=== PATIENT | male | born 1960 | race Caucasian/White ===

== ENCOUNTER 2018-02-13 07:40 | Outpatient (CLI) | payer OTHER ==
[~2018-02-13 07:40] MED LIST: AZIT250T PO; HYDR12.5 PO; OLME1TAB22 PO; OLME40TA13 PO; VALA10002 PO
[2018-02-13 09:12] LABS: BASOPHILS % (AUTO) 0.6 % (0-1); EOSINOPHILS # (AUTO) 0.2 X10'3 (0-0.9); EOSINOPHILS % (AUTO) 2.6 % (0-6); HEMATOCRIT 46.1 % (42.0-52.0); HEMOGLOBIN 15.8 g/dl (14.0-17.9); LYMPHOCYTES # (AUTO) 2.7 X10'3 (1.1-4.8); MEAN CORPUSCULAR HEMOGLOBIN 29.8 PG (27.0-31.0); MEAN CORPUSCULAR HGB CONC 34.3 % (33.0-36.5); MEAN CORPUSCULAR VOLUME 86.9 FL (78-98); MEAN PLATELET VOLUME 8.2 FL (7.4-10.4); MONOCYTES # (AUTO) 0.6 X10'3 (0-0.9); MONOCYTES % (AUTO) 8.1 % (2-12); NEUTROPHILS # (AUTO) 3.3 X10'3 (1.8-7.7); NEUTROPHILS % (AUTO) 48.7 % (42-75); PLATELET COUNT 169 X10'3 (140-440); RED BLOOD COUNT 5.31 X10'6 (4.70-6.10); RED CELL DISTRIBUTION WIDTH 13.4 % (11.5-14.5); WHITE BLOOD COUNT 6.8 X10'3 (4.5-11.0)
[2018-02-13 09:16] LABS: CLARITY,URINE CLEAR (Clear); COLOR,URINE YELLOW (Yellow); GLUCOSE, URINE NEGATIVE (Neg); KETONES,URINE NEGATIVE (Neg); LEUKOCYTE ESTERASE ,URINE NEGATIVE (Neg); NITRITES, URINE NEGATIVE (Neg); OCCULT BLOOD,URINE NEGATIVE (Neg); PROTEIN,URINE >=300 mg/dl (Neg); UROBILINOGEN,URINE 0.2 E.U/dL (0.2-1.0)
[2018-02-13 09:24] LABS: UA COLLECTION TYPE CLN CATCH MIDSTREAM
[2018-02-13 09:27] LABS: BACTERIA,URINE NONE SEEN /HPF (Neg); MUCUS STRANDS NONE SEEN /LPF (Neg); RBC,URINE 0-2 /HPF (0-2); SQUAMOUS EPITHELIAL CELL,UR FEW /LPF (FEW); WBC,URINE NONE SEEN /HPF (0-4)
[2018-02-13 09:44] LABS: TOTAL PROTEIN,URINE RANDOM 217.9 MG/DL; UA PROTEIN/CREATININE RATIO 1.86 mg/mg Cr (0-0.16)
[2018-02-13 09:48] LABS: % IRON SATURATION 39 % (11-46); IRON 98 UG/DL (53-167); TOTAL IRON BINDING CAPACITY 252 UG/DL (259-388)
[2018-02-13 09:53] LABS: ALBUMIN 3.7 G/DL (3.4-5.0); ANION GAP 8 (8-16); BLOOD UREA NITROGEN 30 MG/DL (7-18); BUN/CREATININE RATIO 14.6 (5.4-32.0); CHLORIDE 104 MMOL/L (99-107); CREATININE 2.06 MG/DL (0.60-1.10); FERRITIN 118 NG/ML (26-388); GLUCOSE 96 MG/DL (70-104); MAGNESIUM 1.7 MG/DL (1.5-2.4); PHOSPHORUS 3.3 MG/DL (2.3-4.5); POTASSIUM 3.9 MMOL/L (3.5-5.1); SODIUM 141 MMOL/L (135-145); TOTAL CARBON DIOXIDE 29.1 MMOL/L (24-32); eGFR 34 ML/MIN
[2018-02-14 08:57] LABS: VITAMIN D, 25-HYDROXY 50.7 ng/mL (30.0-100.0)
[2018-02-14 16:11] LABS: PARATHYROID HORMONE 36.5 PG/ML (11-67)
== END 2018-02-13 23:59 | disposition home or self-care (01) ==
LOC: LAB 07:40
PROVIDERS: ATTEND Internal Medicine Critical Care Medicine
DX: I12.9 Hypertensive chronic kidney disease with stage 1 through stage 4 chronic kidney disease, or unspecified chronic kidney disease (principal); N18.3 Chronic kidney disease, stage 3 (moderate); D63.1 Anemia in chronic kidney disease; R80.9 Proteinuria, unspecified; E55.9 Vitamin D deficiency, unspecified; R94.4 Abnormal results of kidney function studies; F10.10 Alcohol abuse, uncomplicated; J45.909 Unspecified asthma, uncomplicated; Z87.891 Personal history of nicotine dependence; Z72.89 Other problems related to lifestyle
CPT/HCPCS: 36415; 80069; 80197; 81001; 82306; 82570; 82728; 83540; 83550; 83735; 83970; 84156; 85025

== ENCOUNTER 2018-03-13 08:00 | Emergency (ER) | payer OTHER ==
[~2018-03-13] VITALS: Ht 177.8 cm; Wt 86.4 kg
[2018-03-13] MEDS ORDERED: normal saline 1000ml 1,000 ML IV ONE (08:15)
[2018-03-13] MEDS ORDERED: HYDR-4069 PO (08:27)
[2018-03-13] MEDS ORDERED: SIMV20TA5 PO (08:27)
[2018-03-13] MEDS ORDERED: OMEG1CAP21 PO (08:27)
[2018-03-13] MEDS ORDERED: TACR1CAP PO (08:27)
[2018-03-13 08:42] LABS: BASOPHILS % (AUTO) 0.6 % (0-1); EOSINOPHILS # (AUTO) 0.3 X10'3 (0-0.9); EOSINOPHILS % (AUTO) 3.9 % (0-6); HEMATOCRIT 44.1 % (42.0-52.0); HEMOGLOBIN 15.2 g/dl (14.0-17.9); LYMPHOCYTES # (AUTO) 2.7 X10'3 (1.1-4.8); LYMPHOCYTES % (AUTO) 41.2 % (21-51); MEAN CORPUSCULAR HEMOGLOBIN 29.6 PG (27.0-31.0); MEAN CORPUSCULAR HGB CONC 34.5 % (33.0-36.5); MEAN CORPUSCULAR VOLUME 85.9 FL (78-98); MEAN PLATELET VOLUME 8.1 FL (7.4-10.4); MONOCYTES # (AUTO) 0.5 X10'3 (0-0.9); MONOCYTES % (AUTO) 7.3 % (2-12); NEUTROPHILS # (AUTO) 3.1 X10'3 (1.8-7.7); PLATELET COUNT 166 X10'3 (140-440); RED BLOOD COUNT 5.14 X10'6 (4.70-6.10); RED CELL DISTRIBUTION WIDTH 13.4 % (11.5-14.5); WHITE BLOOD COUNT 6.5 X10'3 (4.5-11.0)
[2018-03-13 08:48] LABS: ALANINE AMINOTRANSFERASE 35 U/L (12-78); ALBUMIN 3.7 G/DL (3.4-5.0); ALBUMIN/GLOBULIN RATIO 1.3 (1.1-1.5); ALKALINE PHOSPHATASE 64 IU/L (46-116); ANION GAP 8 (8-16); ASPARTATE AMINO TRANSFERASE 20 U/L (10-37); BLOOD UREA NITROGEN 25 MG/DL (7-18); CALCIUM 8.6 MG/DL (8.5-10.1); CHLORIDE 105 MMOL/L (99-107); CREATININE 1.93 MG/DL (0.60-1.10); GLUCOSE 99 MG/DL (70-104); LIPASE 1222 U/L (73-393); POTASSIUM 3.8 MMOL/L (3.5-5.1); SODIUM 142 MMOL/L (135-145); TOTAL CARBON DIOXIDE 28.9 MMOL/L (24-32); TOTAL PROTEIN 6.6 G/DL (6.4-8.2); eGFR 36 ML/MIN
[2018-03-13 09:28] LABS: CLARITY,URINE CLEAR (Clear); COLOR,URINE YELLOW (Yellow); GLUCOSE, URINE NEGATIVE (Neg); KETONES,URINE NEGATIVE (Neg); LEUKOCYTE ESTERASE ,URINE NEGATIVE (Neg); NITRITES, URINE NEGATIVE (Neg); OCCULT BLOOD,URINE NEGATIVE (Neg); PROTEIN,URINE 100 mg/dl (Neg); UROBILINOGEN,URINE 0.2 E.U/dL (0.2-1.0)
[2018-03-13 09:30] LABS: UA COLLECTION TYPE VOIDED
[2018-03-13 09:34] LABS: BACTERIA,URINE FEW /HPF (Neg); MUCUS STRANDS FEW /LPF (Neg); RBC,URINE 0-2 /HPF (0-2); SQUAMOUS EPITHELIAL CELL,UR FEW /LPF (FEW); WBC,URINE 0-4 /HPF (0-4)
[2018-03-13 13:06] LABS: C DIFF ANTIGEN NEGATIVE (NEGATIVE); C DIFF SPECIMEN=DIARRHEA? ACCEPTABLE; C DIFFICILE TOXINS A&B NEGATIVE (Neg)
[2018-03-13 13:19] VITALS: BP 153/102
== END 2018-03-13 13:22 | disposition home or self-care (01) ==
LOC: ER 08:01
DX: R74.8 Abnormal levels of other serum enzymes (principal); R19.7 Diarrhea, unspecified; K80.20 Calculus of gallbladder without cholecystitis without obstruction; I12.9 Hypertensive chronic kidney disease with stage 1 through stage 4 chronic kidney disease, or unspecified chronic kidney disease; N18.9 Chronic kidney disease, unspecified; Z98.890 Other specified postprocedural states; Z88.5 Allergy status to narcotic agent; Z88.8 Allergy status to other drugs, medicaments and biological substances; Z91.018 Allergy to other foods; Z79.899 Other long term (current) drug therapy
CPT/HCPCS: 36415; 74176; 76700; 80053; 81001; 83690; 85025; 87045; 87046; 87324; 87449; 96360; 99285; J7030

== ENCOUNTER 2018-03-21 10:40 | Outpatient (CLI) | payer OTHER ==
[~2018-03-21 10:40] MED LIST changes: -AZIT250T PO; +HYDR-4069 PO; -HYDR12.5 PO; -OLME40TA13 PO; +OMEG1CAP21 PO; +SIMV20TA5 PO; +TACR1CAP PO; -VALA10002 PO
[2018-03-21 11:46] LABS: CLARITY,URINE CLEAR (Clear); COLOR,URINE YELLOW (Yellow); GLUCOSE, URINE NEGATIVE (Neg); KETONES,URINE NEGATIVE (Neg); LEUKOCYTE ESTERASE ,URINE NEGATIVE (Neg); NITRITES, URINE NEGATIVE (Neg); OCCULT BLOOD,URINE NEGATIVE (Neg); PH,URINE 5.5 (4.8-8.0); PROTEIN,URINE 100 mg/dl (Neg); UROBILINOGEN,URINE 0.2 E.U/dL (0.2-1.0)
[2018-03-21 12:06] LABS: UA COLLECTION TYPE CLN CATCH MIDSTREAM
[2018-03-21 12:07] LABS: RBC,URINE NONE SEEN /HPF (0-2); WBC,URINE 0-4 /HPF (0-4)
[2018-03-21 12:08] LABS: BACTERIA,URINE FEW /HPF (Neg); SQUAMOUS EPITHELIAL CELL,UR FEW /LPF (FEW)
== END 2018-03-21 23:59 | disposition home or self-care (01) ==
LOC: LAB 10:40
PROVIDERS: ATTEND Family Medicine
DX: N39.0 Urinary tract infection, site not specified (principal); R82.90 Unspecified abnormal findings in urine; R68.89 Other general symptoms and signs; I10 Essential (primary) hypertension; J45.909 Unspecified asthma, uncomplicated; Z87.891 Personal history of nicotine dependence
CPT/HCPCS: 81001

== ENCOUNTER 2018-03-21 10:49 | Outpatient (CLI) | payer OTHER ==
[2018-03-21 11:59] LABS: AMYLASE 144 U/L (25-115); LIPASE 1197 U/L (73-393)
== END 2018-03-21 23:59 | disposition home or self-care (01) ==
LOC: LAB 10:49
PROVIDERS: ATTEND Internal Medicine Critical Care Medicine
DX: N04.9 Nephrotic syndrome with unspecified morphologic changes (principal); R74.8 Abnormal levels of other serum enzymes; R76.9 Abnormal immunological finding in serum, unspecified; I10 Essential (primary) hypertension; J45.909 Unspecified asthma, uncomplicated; Z72.89 Other problems related to lifestyle; Z87.891 Personal history of nicotine dependence
CPT/HCPCS: 36415; 82150; 83690

== ENCOUNTER 2018-04-11 07:50 | Outpatient (CLI) | payer OTHER ==
[~2018-04-11 07:50] MED LIST changes: -OLME1TAB22 PO; -OMEG1CAP21 PO; -SIMV20TA5 PO; -TACR1CAP PO
[2018-04-11 09:19] LABS: BASOPHILS % (AUTO) 0.3 % (0-1); EOSINOPHILS # (AUTO) 0.4 X10'3 (0-0.9); HEMATOCRIT 47.5 % (42.0-52.0); LYMPHOCYTES # (AUTO) 2.2 X10'3 (1.1-4.8); LYMPHOCYTES % (AUTO) 30.3 % (21-51); MEAN CORPUSCULAR HEMOGLOBIN 29.5 PG (27.0-31.0); MEAN CORPUSCULAR HGB CONC 33.7 % (33.0-36.5); MEAN CORPUSCULAR VOLUME 87.7 FL (78-98); MEAN PLATELET VOLUME 8.4 FL (7.4-10.4); MONOCYTES # (AUTO) 0.6 X10'3 (0-0.9); MONOCYTES % (AUTO) 8.7 % (2-12); NEUTROPHILS % (AUTO) 54.7 % (42-75); PLATELET COUNT 179 X10'3 (140-440); RED BLOOD COUNT 5.42 X10'6 (4.70-6.10); RED CELL DISTRIBUTION WIDTH 13.3 % (11.5-14.5); WHITE BLOOD COUNT 7.3 X10'3 (4.5-11.0)
[2018-04-11 10:00] LABS: ALANINE AMINOTRANSFERASE 28 U/L (12-78); ALBUMIN 3.1 G/DL (3.4-5.0); ALKALINE PHOSPHATASE 59 IU/L (46-116); AMYLASE 76 U/L (25-115); ANION GAP 10 (8-16); ASPARTATE AMINO TRANSFERASE 18 U/L (10-37); BILIRUBIN,TOTAL 1.5 MG/DL (0.1-1.0); BLOOD UREA NITROGEN 23 MG/DL (7-18); BUN/CREATININE RATIO 11.8 (5.4-32.0); CALCIUM 8.6 MG/DL (8.5-10.1); CHLORIDE 104 MMOL/L (99-107); CREATININE 1.95 MG/DL (0.60-1.10); GLUCOSE 84 MG/DL (70-104); LIPASE 247 U/L (73-393); SODIUM 143 MMOL/L (135-145); TOTAL CARBON DIOXIDE 29.2 MMOL/L (24-32); TOTAL PROTEIN 6.2 G/DL (6.4-8.2); eGFR 36 ML/MIN
== END 2018-04-11 23:59 | disposition home or self-care (01) ==
LOC: LAB 07:50
PROVIDERS: ATTEND Family Medicine
DX: I10 Essential (primary) hypertension (principal); K85.90 Acute pancreatitis without necrosis or infection, unspecified; N04.1 Nephrotic syndrome with focal and segmental glomerular lesions; J45.909 Unspecified asthma, uncomplicated; Z72.89 Other problems related to lifestyle; Z87.891 Personal history of nicotine dependence
CPT/HCPCS: 36415; 80053; 82150; 83690; 85025

== ENCOUNTER 2018-07-25 07:38 | Outpatient (CLI) | payer OTHER ==
[2018-07-25 08:04] LABS: BASOPHILS % (AUTO) 0.4 % (0-1); EOSINOPHILS # (AUTO) 0.5 X10'3 (0-0.9); EOSINOPHILS % (AUTO) 6.6 % (0-6); HEMATOCRIT 46.6 % (42.0-52.0); LYMPHOCYTES # (AUTO) 2.3 X10'3 (1.1-4.8); LYMPHOCYTES % (AUTO) 33.8 % (21-51); MEAN CORPUSCULAR HEMOGLOBIN 29.4 PG (27.0-31.0); MEAN CORPUSCULAR HGB CONC 34.3 g/dL (33.0-36.5); MEAN CORPUSCULAR VOLUME 85.7 FL (78-98); MEAN PLATELET VOLUME 8.3 FL (7.4-10.4); MONOCYTES # (AUTO) 0.6 X10'3 (0-0.9); MONOCYTES % (AUTO) 8.7 % (2-12); NEUTROPHILS # (AUTO) 3.5 X10'3 (1.8-7.7); NEUTROPHILS % (AUTO) 50.5 % (42-75); PLATELET COUNT 166 X10'3 (140-440); RED BLOOD COUNT 5.44 X10'6 (4.70-6.10); WHITE BLOOD COUNT 6.9 X10'3 (4.5-11.0)
[2018-07-25 08:10] LABS: CLARITY,URINE CLEAR (Clear); COLOR,URINE YELLOW (Yellow); GLUCOSE, URINE NEGATIVE (Neg); KETONES,URINE NEGATIVE (Neg); LEUKOCYTE ESTERASE ,URINE NEGATIVE (Neg); NITRITES, URINE NEGATIVE (Neg); OCCULT BLOOD,URINE NEGATIVE (Neg); PROTEIN,URINE >=300 mg/dl (Neg); UROBILINOGEN,URINE 0.2 E.U/dL (0.2-1.0)
[2018-07-25 08:17] LABS: UA COLLECTION TYPE VOIDED
[2018-07-25 08:18] LABS: SQUAMOUS EPITHELIAL CELL,UR FEW /LPF (FEW)
[2018-07-25 08:19] LABS: BACTERIA,URINE FEW /HPF (Neg); RBC,URINE 0-2 /HPF (0-2); WBC,URINE 0-4 /HPF (0-4)
[2018-07-25 08:27] LABS: HEMOGLOBIN A1C 5.5 % (4.5-6.2)
[2018-07-25 08:32] LABS: TOTAL PROTEIN,URINE RANDOM 509.5 MG/DL
[2018-07-25 08:39] LABS: ALBUMIN 3.1 G/DL (3.4-5.0); AMYLASE 110 U/L (25-115); ANION GAP 6 (8-16); BLOOD UREA NITROGEN 18 MG/DL (7-18); BUN/CREATININE RATIO 8.5 (5.4-32.0); CALCIUM 8.6 MG/DL (8.5-10.1); CHLORIDE 107 MMOL/L (99-107); CHOL/HDL RATIO 4.4 (0.00-4.99); CHOLESTEROL 239 MG/DL (0-200); CREATININE 2.13 MG/DL (0.60-1.10); GLUCOSE 96 MG/DL (70-104); HDL CHOLESTEROL 54 MG/DL (35-60); LDL CHOLESTEROL 149 MG/DL (50-100); LIPASE 950 U/L (73-393); MAGNESIUM 1.9 MG/DL (1.5-2.4); PHOSPHORUS 3.1 MG/DL (2.3-4.5); POTASSIUM 4.3 MMOL/L (3.5-5.1); SODIUM 143 MMOL/L (135-145); TRIGLYCERIDES 180 MG/DL (20-135); eGFR 32 ML/MIN
[2018-07-25 09:21] LABS: FERRITIN 88 NG/ML (26-388)
[2018-07-25 09:29] LABS: % IRON SATURATION 41 % (11-46); IRON 110 UG/DL (53-167); TOTAL IRON BINDING CAPACITY 267 UG/DL (259-388)
[2018-07-26 08:18] LABS: PSA, ULTRASENSITIVE W/O SERIAL 0.717 ng/mL (0.000-4.000)
[2018-07-26 11:15] LABS: VITAMIN D, 25-HYDROXY 35.7 ng/mL (30.0-100.0)
== END 2018-07-25 23:59 | disposition home or self-care (01) ==
LOC: LAB 07:38
PROVIDERS: ATTEND Internal Medicine Critical Care Medicine
DX: I13.0 Hypertensive heart and chronic kidney disease with heart failure and stage 1 through stage 4 chronic kidney disease, or unspecified chronic kidney disease (principal); E11.22 Type 2 diabetes mellitus with diabetic chronic kidney disease; N18.3 Chronic kidney disease, stage 3 (moderate); I50.9 Heart failure, unspecified; N04.9 Nephrotic syndrome with unspecified morphologic changes; E78.5 Hyperlipidemia, unspecified; D63.1 Anemia in chronic kidney disease; D50.9 Iron deficiency anemia, unspecified; E83.52 Hypercalcemia; E83.42 Hypomagnesemia; N39.0 Urinary tract infection, site not specified; E88.9 Metabolic disorder, unspecified; R74.8 Abnormal levels of other serum enzymes; R80.9 Proteinuria, unspecified; R35.0 Frequency of micturition; R94.4 Abnormal results of kidney function studies; R82.998 Other abnormal findings in urine; R97.20 Elevated prostate specific antigen [PSA]; Z87.891 Personal history of nicotine dependence; Z72.89 Other problems related to lifestyle; Z88.5 Allergy status to narcotic agent; Z88.8 Allergy status to other drugs, medicaments and biological substances; Z91.018 Allergy to other foods
CPT/HCPCS: 36415; 80061; 80069; 81001; 82150; 82306; 82570; 82728; 83036; 83540; 83550; 83690; 83735; 84153; 84156; 85025; 87088

== ENCOUNTER 2018-09-18 11:52 | Emergency (ER) | payer OTHER ==
[~2018-09-18] VITALS: Ht 180.3 cm; Wt 79.5 kg
[2018-09-18 12:10] VITALS: BP 168/110
== END 2018-09-18 12:46 | disposition home or self-care (01) ==
LOC: ER 11:53
DX: J70.5 Respiratory conditions due to smoke inhalation (principal); I12.9 Hypertensive chronic kidney disease with stage 1 through stage 4 chronic kidney disease, or unspecified chronic kidney disease; N18.9 Chronic kidney disease, unspecified; Z87.891 Personal history of nicotine dependence; Z98.890 Other specified postprocedural states; Z91.018 Allergy to other foods; Z91.010 Allergy to peanuts
CPT/HCPCS: 99281

== ENCOUNTER 2018-10-29 07:20 | Outpatient (CLI) | payer OTHER ==
[2018-10-29 08:05] LABS: CLARITY,URINE CLEAR (Clear); COLOR,URINE YELLOW (Yellow); GLUCOSE, URINE NEGATIVE (Neg); KETONES,URINE NEGATIVE (Neg); LEUKOCYTE ESTERASE ,URINE NEGATIVE (Neg); NITRITES, URINE NEGATIVE (Neg); OCCULT BLOOD,URINE NEGATIVE (Neg); PROTEIN,URINE >=300 mg/dl (Neg); UROBILINOGEN,URINE 0.2 E.U/dL (0.2-1.0)
[2018-10-29 08:12] LABS: BASOPHILS # (AUTO) 0.1 X10'3 (0-0.2); EOSINOPHILS # (AUTO) 0.3 X10'3 (0-0.9); EOSINOPHILS % (AUTO) 5.2 % (0-6); HEMATOCRIT 45.2 % (42.0-52.0); HEMOGLOBIN 15.6 g/dl (14.0-17.9); LYMPHOCYTES # (AUTO) 2.2 X10'3 (1.1-4.8); LYMPHOCYTES % (AUTO) 33.1 % (21-51); MEAN CORPUSCULAR HEMOGLOBIN 29.7 PG (27.0-31.0); MEAN CORPUSCULAR HGB CONC 34.6 g/dL (33.0-36.5); MEAN CORPUSCULAR VOLUME 85.9 FL (78-98); MEAN PLATELET VOLUME 8.1 FL (7.4-10.4); MONOCYTES # (AUTO) 0.6 X10'3 (0-0.9); MONOCYTES % (AUTO) 8.8 % (2-12); NEUTROPHILS # (AUTO) 3.5 X10'3 (1.8-7.7); NEUTROPHILS % (AUTO) 51.9 % (42-75); PLATELET COUNT 145 X10'3 (140-440); RED BLOOD COUNT 5.27 X10'6 (4.70-6.10); RED CELL DISTRIBUTION WIDTH 13.5 % (11.5-14.5); WHITE BLOOD COUNT 6.8 X10'3 (4.5-11.0)
[2018-10-29 08:30] LABS: UA COLLECTION TYPE CLN CATCH MIDSTREAM
[2018-10-29 08:34] LABS: ALBUMIN 3.1 G/DL (3.4-5.0); ANION GAP 3 (8-16); BLOOD UREA NITROGEN 22 MG/DL (7-18); CALCIUM 8.5 MG/DL (8.5-10.1); CHLORIDE 107 MMOL/L (99-107); FERRITIN 117 NG/ML (26-388); GLUCOSE 89 MG/DL (70-104); MAGNESIUM 1.9 MG/DL (1.5-2.4); POTASSIUM 3.9 MMOL/L (3.5-5.1); SODIUM 141 MMOL/L (135-145); TOTAL CARBON DIOXIDE 31.2 MMOL/L (24-32); eGFR 31 ML/MIN
[2018-10-29 08:37] LABS: BACTERIA,URINE FEW /HPF (Neg); SQUAMOUS EPITHELIAL CELL,UR FEW /LPF (FEW)
[2018-10-29 08:38] LABS: RBC,URINE NONE SEEN /HPF (0-2); WBC,URINE 0-4 /HPF (0-4)
[2018-10-29 08:39] LABS: COARSE GRANULAR CAST 0-3 /LPF (NEGATIVE)
[2018-10-29 08:47] LABS: % IRON SATURATION 43 % (11-46); IRON 104 UG/DL (53-167); TOTAL IRON BINDING CAPACITY 242 UG/DL (259-388)
[2018-10-30 11:12] LABS: VITAMIN D, 25-HYDROXY 44.8 ng/mL (30.0-100.0)
== END 2018-10-29 23:59 | disposition home or self-care (01) ==
LOC: LAB 07:20
PROVIDERS: ATTEND Internal Medicine Critical Care Medicine
DX: N04.9 Nephrotic syndrome with unspecified morphologic changes (principal); D63.1 Anemia in chronic kidney disease; D50.9 Iron deficiency anemia, unspecified; R80.9 Proteinuria, unspecified; E55.9 Vitamin D deficiency, unspecified; R35.0 Frequency of micturition; N39.0 Urinary tract infection, site not specified; R94.4 Abnormal results of kidney function studies; B88.9 Infestation, unspecified; I12.9 Hypertensive chronic kidney disease with stage 1 through stage 4 chronic kidney disease, or unspecified chronic kidney disease; N18.9 Chronic kidney disease, unspecified
CPT/HCPCS: 80069; 81001; 82088; 82306; 82728; 83540; 83550; 83735; 84244; 85025; 87088

== ENCOUNTER 2018-11-04 05:59 | Emergency (ER) | payer OTHER ==
[~2018-11-04] VITALS: Ht 177.8 cm; Wt 73.6 kg
[2018-11-04 07:01] VITALS: BP 140/92
== END 2018-11-04 07:04 | disposition home or self-care (01) ==
LOC: ER 06:01
DX: S93.491A Sprain of other ligament of right ankle, initial encounter (principal); I12.9 Hypertensive chronic kidney disease with stage 1 through stage 4 chronic kidney disease, or unspecified chronic kidney disease; N18.9 Chronic kidney disease, unspecified; Z98.890 Other specified postprocedural states; Z87.891 Personal history of nicotine dependence; Z88.8 Allergy status to other drugs, medicaments and biological substances; Z91.018 Allergy to other foods; Z88.5 Allergy status to narcotic agent; Z79.899 Other long term (current) drug therapy; W21.05XA Struck by basketball, initial encounter; Y93.67 Activity, basketball; Y92.89 Other specified places as the place of occurrence of the external cause; Y99.8 Other external cause status
CPT/HCPCS: 73610; 99283

== ENCOUNTER 2019-01-13 06:54 | Outpatient (CLI) | payer OTHER ==
[2019-01-13 08:05] LABS: BASOPHILS % (AUTO) 0.6 % (0-1); EOSINOPHILS # (AUTO) 0.2 X10'3 (0-0.9); EOSINOPHILS % (AUTO) 3.7 % (0-6); HEMATOCRIT 44.5 % (42.0-52.0); HEMOGLOBIN 15.2 g/dl (14.0-17.9); LYMPHOCYTES # (AUTO) 2.1 X10'3 (1.1-4.8); LYMPHOCYTES % (AUTO) 33.7 % (21-51); MEAN CORPUSCULAR HEMOGLOBIN 29.7 PG (27.0-31.0); MEAN CORPUSCULAR HGB CONC 34.1 g/dL (33.0-36.5); MEAN CORPUSCULAR VOLUME 87.2 FL (78-98); MEAN PLATELET VOLUME 8.5 FL (7.4-10.4); MONOCYTES # (AUTO) 0.5 X10'3 (0-0.9); MONOCYTES % (AUTO) 8.5 % (2-12); NEUTROPHILS # (AUTO) 3.3 X10'3 (1.8-7.7); NEUTROPHILS % (AUTO) 53.5 % (42-75); PLATELET COUNT 136 X10'3 (140-440); RED BLOOD COUNT 5.11 X10'6 (4.70-6.10); RED CELL DISTRIBUTION WIDTH 13.6 % (11.5-14.5); WHITE BLOOD COUNT 6.2 X10'3 (4.5-11.0)
[2019-01-13 08:13] LABS: % IRON SATURATION 41 % (11-46); IRON 102 UG/DL (53-167); TOTAL IRON BINDING CAPACITY 249 UG/DL (259-388)
[2019-01-13 08:25] LABS: CLARITY,URINE CLEAR (Clear); COLOR,URINE STRAW (Yellow); GLUCOSE, URINE NEGATIVE (Neg); KETONES,URINE NEGATIVE (Neg); LEUKOCYTE ESTERASE ,URINE NEGATIVE (Neg); NITRITES, URINE NEGATIVE (Neg); OCCULT BLOOD,URINE NEGATIVE (Neg); PROTEIN,URINE >=300 mg/dl (Neg); UROBILINOGEN,URINE 0.2 E.U/dL (0.2-1.0)
[2019-01-13 08:26] LABS: TOTAL PROTEIN,URINE RANDOM 377.1 MG/DL; UA PROTEIN/CREATININE RATIO 3.66 mg/mg Cr (0-0.16)
[2019-01-13 08:27] LABS: UA COLLECTION TYPE CLN CATCH MIDSTREAM
[2019-01-13 08:31] LABS: ALBUMIN 3.1 G/DL (3.4-5.0); ANION GAP 8 (8-16); BLOOD UREA NITROGEN 22 MG/DL (7-18); CALCIUM 8.7 MG/DL (8.5-10.1); CHLORIDE 108 MMOL/L (99-107); FERRITIN 91 NG/ML (26-388); GLUCOSE 93 MG/DL (70-104); MAGNESIUM 1.8 MG/DL (1.5-2.4); PHOSPHORUS 3.6 MG/DL (2.3-4.5); POTASSIUM 4.1 MMOL/L (3.5-5.1); SODIUM 142 MMOL/L (135-145); TOTAL CARBON DIOXIDE 26.5 MMOL/L (24-32); eGFR 31 ML/MIN
[2019-01-13 09:02] LABS: BACTERIA,URINE NONE SEEN /HPF (Neg); HYALINE CASTS 0-3 /LPF (NEGATIVE); MUCUS STRANDS FEW /LPF (Neg); RBC,URINE NONE SEEN /HPF (0-2); SQUAMOUS EPITHELIAL CELL,UR FEW /LPF (FEW); WBC,URINE NONE SEEN /HPF (0-4)
== END 2019-01-13 23:59 | disposition home or self-care (01) ==
LOC: LAB 06:54
PROVIDERS: ATTEND Internal Medicine Critical Care Medicine
DX: N39.0 Urinary tract infection, site not specified (principal); D50.9 Iron deficiency anemia, unspecified; I12.9 Hypertensive chronic kidney disease with stage 1 through stage 4 chronic kidney disease, or unspecified chronic kidney disease; E11.22 Type 2 diabetes mellitus with diabetic chronic kidney disease; N18.3 Chronic kidney disease, stage 3 (moderate); D63.1 Anemia in chronic kidney disease; E55.9 Vitamin D deficiency, unspecified; R80.9 Proteinuria, unspecified; M10.9 Gout, unspecified; J45.909 Unspecified asthma, uncomplicated; Z87.891 Personal history of nicotine dependence
CPT/HCPCS: 36415; 80069; 81001; 82306; 82570; 82728; 83540; 83550; 83735; 84156; 85025

== ENCOUNTER 2019-01-23 09:11 | Day surgery (SDC) | payer OTHER ==
[~2019-01-23] VITALS: Ht 177.8 cm; Wt 87.9 kg
[2019-01-23 09:20] VITALS: BP 160/115
[2019-01-23] MEDS ORDERED: CARV3.12 PO (09:37)
[2019-01-23] MEDS ORDERED: HYDR-4069 PO (09:37)
[2019-01-23] MEDS ORDERED: OLME40TA13 PO (09:38)
[2019-01-23] MEDS ORDERED: SIMV20TA5 PO (09:38)
[2019-01-23] MEDS ORDERED: ERGO500014 PO (09:39)
[2019-01-23] MEDS ORDERED: MIDAZolam 5mg/5ml vial ONE (09:40)
[2019-01-23] MEDS ORDERED: fentaNYL/PF 50MCG/1 ML 2ML syringe ONE (09:40)
[2019-01-23 10:29] VITALS: BP 163/112
[2019-01-23 10:37] VITALS: BP 136/112
[2019-01-23 10:47] VITALS: BP 153/101
[2019-01-23 10:57] VITALS: BP 154/103
== END 2019-01-23 11:01 | disposition home or self-care (01) ==
LOC: GI LAB 09:11
PROVIDERS: ATTEND Internal Medicine Gastroenterology
DX: Z12.11 Encounter for screening for malignant neoplasm of colon (principal); D12.5 Benign neoplasm of sigmoid colon; D12.4 Benign neoplasm of descending colon; K57.30 Diverticulosis of large intestine without perforation or abscess without bleeding; Z86.010 Personal history of colon polyps; Z79.899 Other long term (current) drug therapy
CPT/HCPCS: 45380; 45385; C1773; J2250; J3010; J7040; 99152; 99153; A4620

== ENCOUNTER 2019-02-03 14:19 | Outpatient (CLI) | payer OTHER ==
[~2019-02-03 14:19] MED LIST changes: +CARV3.12 PO; +ERGO500014 PO; +OLME40TA13 PO; +SIMV20TA5 PO
== END 2019-02-03 23:59 | disposition home or self-care (01) ==
LOC: RAD 14:19
PROVIDERS: ATTEND Orthopaedic Surgery
DX: M25.552 Pain in left hip (principal); I10 Essential (primary) hypertension; J45.909 Unspecified asthma, uncomplicated; Z87.891 Personal history of nicotine dependence; Z72.89 Other problems related to lifestyle
CPT/HCPCS: 72170; 73502

== ENCOUNTER 2019-03-20 08:17 | Outpatient (CLI) | payer OTHER ==
[2019-03-20 09:08] LABS: BASOPHILS % (AUTO) 0.9 % (0-1); EOSINOPHILS # (AUTO) 0.2 X10'3 (0-0.9); EOSINOPHILS % (AUTO) 3.9 % (0-6); HEMATOCRIT 43.2 % (42.0-52.0); HEMOGLOBIN 14.8 g/dl (14.0-17.9); LYMPHOCYTES # (AUTO) 1.8 X10'3 (1.1-4.8); LYMPHOCYTES % (AUTO) 33.5 % (21-51); MEAN CORPUSCULAR HEMOGLOBIN 30.5 PG (27.0-31.0); MEAN CORPUSCULAR HGB CONC 34.2 g/dL (33.0-36.5); MEAN CORPUSCULAR VOLUME 89.1 FL (78-98); MEAN PLATELET VOLUME 8.5 FL (7.4-10.4); MONOCYTES # (AUTO) 0.6 X10'3 (0-0.9); MONOCYTES % (AUTO) 10.5 % (2-12); NEUTROPHILS # (AUTO) 2.7 X10'3 (1.8-7.7); NEUTROPHILS % (AUTO) 51.2 % (42-75); PLATELET COUNT 132 X10'3 (140-440); RED BLOOD COUNT 4.85 X10'6 (4.70-6.10); RED CELL DISTRIBUTION WIDTH 14.2 % (11.5-14.5); WHITE BLOOD COUNT 5.3 X10'3 (4.5-11.0)
[2019-03-20 09:12] LABS: CLARITY,URINE CLEAR (Clear); COLOR,URINE YELLOW (Yellow); GLUCOSE, URINE NEGATIVE (Neg); KETONES,URINE NEGATIVE (Neg); LEUKOCYTE ESTERASE ,URINE NEGATIVE (Neg); NITRITES, URINE NEGATIVE (Neg); OCCULT BLOOD,URINE NEGATIVE (Neg); PH,URINE 5.5 (4.8-8.0); PROTEIN,URINE >=300 mg/dl (Neg); UROBILINOGEN,URINE 0.2 E.U/dL (0.2-1.0)
[2019-03-20 09:13] LABS: UA COLLECTION TYPE CLN CATCH MIDSTREAM
[2019-03-20 09:39] LABS: BACTERIA,URINE 1+ /HPF (Neg); RBC,URINE 0-2 /HPF (0-2); SQUAMOUS EPITHELIAL CELL,UR FEW /LPF (FEW); WBC,URINE 0-4 /HPF (0-4)
[2019-03-20 09:43] LABS: ALBUMIN 3.4 G/DL (3.4-5.0); ANION GAP 5 (8-16); BLOOD UREA NITROGEN 23 MG/DL (7-18); CALCIUM 8.6 MG/DL (8.5-10.1); CHLORIDE 109 MMOL/L (99-107); CREATININE 2.29 MG/DL (0.60-1.10); FERRITIN 89 NG/ML (26-388); GLUCOSE 92 MG/DL (70-104); MAGNESIUM 1.7 MG/DL (1.5-2.4); PHOSPHORUS 4.1 MG/DL (2.3-4.5); POTASSIUM 4.4 MMOL/L (3.5-5.1); SODIUM 144 MMOL/L (135-145); TOTAL CARBON DIOXIDE 29.6 MMOL/L (24-32); eGFR 30 ML/MIN
[2019-03-20 09:51] LABS: TOTAL PROTEIN,URINE RANDOM 311.2 MG/DL; UA PROTEIN/CREATININE RATIO 3.27 mg/mg Cr (0-0.16)
[2019-03-20 09:57] LABS: % IRON SATURATION 33 % (11-46); IRON 91 UG/DL (53-167); TOTAL IRON BINDING CAPACITY 273 UG/DL (259-388)
[2019-03-25 11:11] LABS: RENIN, PLASMA 1.664 ng/mL/hr (0.167-5.380)
== END 2019-03-20 23:59 | disposition home or self-care (01) ==
LOC: LAB 08:17
PROVIDERS: ATTEND Internal Medicine Critical Care Medicine
DX: E11.22 Type 2 diabetes mellitus with diabetic chronic kidney disease (principal); N18.3 Chronic kidney disease, stage 3 (moderate); D63.1 Anemia in chronic kidney disease; R80.9 Proteinuria, unspecified; N39.0 Urinary tract infection, site not specified; E55.9 Vitamin D deficiency, unspecified; D50.9 Iron deficiency anemia, unspecified; M10.9 Gout, unspecified
CPT/HCPCS: 36415; 80069; 81001; 82306; 82570; 82728; 83540; 83550; 83735; 84156; 84244; 85025

== ENCOUNTER 2019-05-21 14:00 | Day surgery (SDC) | payer OTHER ==
[2019-05-13 10:03] LABS: BASOPHILS % (AUTO) 0.6 % (0-1); EOSINOPHILS # (AUTO) 0.1 X10'3 (0-0.9); EOSINOPHILS % (AUTO) 1.2 % (0-6); LYMPHOCYTES # (AUTO) 2.2 X10'3 (1.1-4.8); LYMPHOCYTES % (AUTO) 26.7 % (21-51); MEAN CORPUSCULAR HEMOGLOBIN 30.4 PG (27.0-31.0); MEAN CORPUSCULAR HGB CONC 34.2 g/dL (33.0-36.5); MEAN CORPUSCULAR VOLUME 88.9 FL (78-98); MONOCYTES # (AUTO) 0.7 X10'3 (0-0.9); MONOCYTES % (AUTO) 8.5 % (2-12); NEUTROPHILS # (AUTO) 5.1 X10'3 (1.8-7.7); PRE OP HEMATOCRIT 45.3 % (42.0-52.0); PRE OP HEMOGLOBIN 15.5 g/dL (14.0-17.9); PRE OP PLATELET COUNT 161 X10'3 (140-440); RED CELL DISTRIBUTION WIDTH 13.4 % (11.5-14.5)
[2019-05-13 10:25] LABS: ALBUMIN 3.7 G/DL (3.4-5.0); ALBUMIN/GLOBULIN RATIO 1.1 (1.1-1.5); ALKALINE PHOSPHATASE 50 IU/L (46-116); BLOOD UREA NITROGEN 32 MG/DL (7-18); BUN/CREATININE RATIO 12.7 (5.4-32.0); CALCIUM 9.1 MG/DL (8.5-10.1); CHLORIDE 105 MMOL/L (99-107); CREATININE 2.51 MG/DL (0.60-1.10); PRE OP ALT 34 U/L (30-65); PRE OP ANION GAP 5 (8-16); PRE OP AST 18 U/L (10-37); PRE OP BILIRUB, TOTAL 1.1 MG/DL (0.0-1.0); PRE OP GLUCOSE 74 MG/DL (70-104); PRE OP POTASSIUM 4.2 MMOL/L (3.4-5.1); PRE OP SODIUM 142 MMOL/L (135-145); TOTAL CARBON DIOXIDE 32.2 MMOL/L (24-32); eGFR 27 ML/MIN
[2019-05-21] VITALS (7 sets, daily range): BP systolic 110–185; BP diastolic 76–105
[~2019-05-21] VITALS: Ht 177.8 cm; Wt 89.9 kg
[~2019-05-21 14:00] MED LIST changes: +DOCUMENT DATE & TIME OF BETA-BLOCKER PO ONE; +DOXA4TAB42 PO; -SIMV20TA5 PO; +cefazolin/dext.iso 2gm/100ml 100 ML IV ONE; +famotidine 20mg tablet PO ONE; +ringers solution, lacted 1,000 ML IV SCH
[2019-05-21] MEDS ORDERED: ceFAZolin 1000mg inj ONE (18:01)
[2019-05-21] MEDS ORDERED: sevoflurane 250ml liquid IH ONE (18:02)
[2019-05-21] MEDS ORDERED: midazolam 2 mg/2 ml injection ONE (18:07)
[2019-05-21] MEDS ORDERED: fentaNYL /PF 50mcg/ml 5ml ampule ONE (18:09)
[2019-05-21] MEDS ORDERED: ringers solution, lacted 1,000 ML IV SCH (18:52)
[2019-05-21] MEDS ORDERED: proCHLORperazine 10 MG/2 ml inj IV PRN (18:55)
[2019-05-21] MEDS ORDERED: morphine 4 MG/ML inj SYRINge IV PRN ×2 (18:55)
[2019-05-21] MEDS ORDERED: meperidine/PF 25mg/ml syringe IV PRN ×3 (18:55)
[2019-05-21] MEDS ORDERED: ondansetron/PF 4mg/2ml inj IV PRN (18:55)
[2019-05-21] MEDS ORDERED: propofol inj 20 ML IV ONE (19:39)
--- NOTE | 2019-05-21 19:45 | NUR ---
Received from OR via BED , accompanied by Anesthesiologist DR [email or web address] and report given by Anesthesiolgist. PATIENT WAKING UP, DENIES PAIN, V/S WNL, NEUROVASCULAR CHECKS INTACT, 20G PIV LUE ,ISLAND DRESSING TO RIGHT HIP CDI, SCD ON.
[2019-05-21] MEDS ORDERED: acetaminophen 1,000mg/100ml IV 100 ML IV ONE (19:50)
[2019-05-21] MEDS ORDERED: ketorolac trometh. 30mg/ml inj. IV ONE (19:50)
--- NOTE | 2019-05-21 20:35 | NUR ---
PATIENT A&OX4, DENIES PAIN, V/S WNL, NEUROVASCULAR CHECKS INTACT, 20G PIV LUE D/C ,ISLAND DRESSING TO RIGHT HIP CDI, SCD OFF. I HAVE REVIEWED D/C INSTRUCTIONS WITH PATIENT AND FAMILY AND THEY HAVE VERBALIZED UNDERSTANDING. PATIENT D/C HOME WITH ALL BELONGINGS AND FAMILY GAVE TRANSPORT HOME.
== END 2019-05-21 20:35 | disposition home or self-care (01) ==
LOC: PAS 14:00
PROVIDERS: ATTEND Orthopaedic Surgery
DX: D17.1 Benign lipomatous neoplasm of skin and subcutaneous tissue of trunk (principal); I12.9 Hypertensive chronic kidney disease with stage 1 through stage 4 chronic kidney disease, or unspecified chronic kidney disease; N18.9 Chronic kidney disease, unspecified; G47.30 Sleep apnea, unspecified; Z87.891 Personal history of nicotine dependence; Z88.8 Allergy status to other drugs, medicaments and biological substances; Z91.011 Allergy to milk products; Z98.890 Other specified postprocedural states; Z79.899 Other long term (current) drug therapy
CPT/HCPCS: 27045; 36415; 80053; 82948; 85025; 93005; J0131; J0690; J1885; J2175; J2250; J2704; J3010; A4215; A4618; A7000; J7120

== ENCOUNTER 2019-08-25 09:40 | Outpatient (CLI) | payer OTHER ==
[~2019-08-25 09:40] MED LIST changes: -DOCUMENT DATE & TIME OF BETA-BLOCKER PO ONE; -cefazolin/dext.iso 2gm/100ml 100 ML IV ONE; -famotidine 20mg tablet PO ONE; -ringers solution, lacted 1,000 ML IV SCH
[2019-08-25 11:06] LABS: BASOPHILS # (AUTO) 0.1 X10'3 (0-0.2); BASOPHILS % (AUTO) 1.1 % (0-1); EOSINOPHILS # (AUTO) 0.1 X10'3 (0-0.9); EOSINOPHILS % (AUTO) 2.3 % (0-6); HEMATOCRIT 44.2 % (42.0-52.0); LYMPHOCYTES # (AUTO) 1.8 X10'3 (1.1-4.8); LYMPHOCYTES % (AUTO) 30.6 % (21-51); MEAN CORPUSCULAR HEMOGLOBIN 29.4 PG (27.0-31.0); MEAN CORPUSCULAR HGB CONC 33.9 g/dL (33.0-36.5); MEAN CORPUSCULAR VOLUME 86.7 FL (78-98); MEAN PLATELET VOLUME 8.5 FL (7.4-10.4); MONOCYTES # (AUTO) 0.5 X10'3 (0-0.9); MONOCYTES % (AUTO) 8.6 % (2-12); NEUTROPHILS # (AUTO) 3.4 X10'3 (1.8-7.7); NEUTROPHILS % (AUTO) 57.4 % (42-75); PLATELET COUNT 147 X10'3 (140-440); RED CELL DISTRIBUTION WIDTH 14.3 % (11.5-14.5); WHITE BLOOD COUNT 5.9 X10'3 (4.5-11.0)
[2019-08-25 11:08] LABS: CLARITY,URINE CLEAR (Clear); COLOR,URINE YELLOW (Yellow); GLUCOSE, URINE NEGATIVE (Neg); KETONES,URINE NEGATIVE (Neg); LEUKOCYTE ESTERASE ,URINE NEGATIVE (Neg); NITRITES, URINE NEGATIVE (Neg); OCCULT BLOOD,URINE NEGATIVE (Neg); PH,URINE 5.5 (4.8-8.0); PROTEIN,URINE >=300 mg/dl (Neg); UROBILINOGEN,URINE 0.2 E.U/dL (0.2-1.0)
[2019-08-25 11:09] LABS: UA COLLECTION TYPE VOIDED
[2019-08-25 11:13] LABS: MUCUS STRANDS FEW /LPF (Neg); SQUAMOUS EPITHELIAL CELL,UR FEW /LPF (FEW)
[2019-08-25 11:14] LABS: AMORPHOUS URATES 1+; BACTERIA,URINE NONE SEEN /HPF (Neg); RBC,URINE 0-2 /HPF (0-2); WBC,URINE 0-4 /HPF (0-4)
[2019-08-25 11:16] LABS: TOTAL PROTEIN,URINE RANDOM 265.5 MG/DL; UA PROTEIN/CREATININE RATIO 2.79 mg/mg Cr (0-0.16)
[2019-08-25 11:25] LABS: % IRON SATURATION 30 % (11-46); IRON 92 UG/DL (53-167); TOTAL IRON BINDING CAPACITY 310 UG/DL (259-388)
[2019-08-25 11:35] LABS: ALBUMIN 3.7 G/DL (3.4-5.0); ANION GAP 7 (8-16); BLOOD UREA NITROGEN 29 MG/DL (7-18); BUN/CREATININE RATIO 11.9 (5.4-32.0); CALCIUM 9.4 MG/DL (8.5-10.1); CHLORIDE 107 MMOL/L (99-107); CREATININE 2.44 MG/DL (0.60-1.10); FERRITIN 60 NG/ML (26-388); GLUCOSE 52 MG/DL (70-104); MAGNESIUM 1.8 MG/DL (1.5-2.4); PHOSPHORUS 4.1 MG/DL (2.3-4.5); POTASSIUM 3.8 MMOL/L (3.5-5.1); SODIUM 143 MMOL/L (135-145); TOTAL CARBON DIOXIDE 29.1 MMOL/L (24-32); eGFR 28 ML/MIN
== END 2019-08-25 23:59 | disposition home or self-care (01) ==
LOC: LAB 09:40
PROVIDERS: ATTEND Internal Medicine Critical Care Medicine
DX: N18.4 Chronic kidney disease, stage 4 (severe) (principal); D63.1 Anemia in chronic kidney disease; R94.4 Abnormal results of kidney function studies; E83.40 Disorders of magnesium metabolism, unspecified; E83.30 Disorder of phosphorus metabolism, unspecified; D50.8 Other iron deficiency anemias; E83.52 Hypercalcemia; R80.9 Proteinuria, unspecified; R82.79 Other abnormal findings on microbiological examination of urine; N39.0 Urinary tract infection, site not specified
CPT/HCPCS: 36415; 80069; 81001; 82306; 82570; 82728; 83540; 83550; 83735; 84156; 85025

== ENCOUNTER 2019-09-15 12:20 | Emergency (ER) | payer OTHER ==
[~2019-09-15] VITALS: Ht 180.3 cm; Wt 88.6 kg
[2019-09-15 12:29] VITALS: BP 184/103
== END 2019-09-15 13:11 | disposition home or self-care (01) ==
LOC: ER 12:21
DX: R07.89 Other chest pain (principal); Z20.828 Contact with and (suspected) exposure to other viral communicable diseases; B34.9 Viral infection, unspecified; R51 Headache; I12.9 Hypertensive chronic kidney disease with stage 1 through stage 4 chronic kidney disease, or unspecified chronic kidney disease; N18.9 Chronic kidney disease, unspecified; Z88.5 Allergy status to narcotic agent; Z91.011 Allergy to milk products; Z91.018 Allergy to other foods
CPT/HCPCS: 36415; 87502; 87503; 87635; 99283

== ENCOUNTER 2020-01-01 07:38 | Emergency (ER) | payer OTHER ==
[~2020-01-01] VITALS: Ht 177.8 cm; Wt 93.0 kg
[2020-01-01 07:41] VITALS: BP 183/102
== END 2020-01-01 09:04 | disposition home or self-care (01) ==
LOC: ER 07:39
DX: S83.195A Other dislocation of left knee, initial encounter (principal); I12.9 Hypertensive chronic kidney disease with stage 1 through stage 4 chronic kidney disease, or unspecified chronic kidney disease; N18.4 Chronic kidney disease, stage 4 (severe); Z72.89 Other problems related to lifestyle; Z98.890 Other specified postprocedural states; Z91.018 Allergy to other foods; Z91.011 Allergy to milk products; Z79.899 Other long term (current) drug therapy; Z88.5 Allergy status to narcotic agent; W18.39XA Other fall on same level, initial encounter; Y93.89 Activity, other specified; Y92.89 Other specified places as the place of occurrence of the external cause; Y99.8 Other external cause status
CPT/HCPCS: 29505; 73564; 99284

== ENCOUNTER 2020-01-05 12:35 | Outpatient (CLI) | payer BC ==
[2020-01-05 13:38] LABS: BASOPHILS # (AUTO) 0.1 X10'3 (0-0.2); BASOPHILS % (AUTO) 0.8 % (0-1); EOSINOPHILS # (AUTO) 0.2 X10'3 (0-0.9); EOSINOPHILS % (AUTO) 2.7 % (0-6); HEMOGLOBIN 14.9 g/dl (14.0-17.9); LYMPHOCYTES # (AUTO) 1.9 X10'3 (1.1-4.8); MEAN CORPUSCULAR HEMOGLOBIN 29.4 PG (27.0-31.0); MEAN CORPUSCULAR HGB CONC 33.9 g/dL (33.0-36.5); MEAN CORPUSCULAR VOLUME 86.7 FL (78-98); MEAN PLATELET VOLUME 8.4 FL (7.4-10.4); MONOCYTES # (AUTO) 0.6 X10'3 (0-0.9); MONOCYTES % (AUTO) 8.9 % (2-12); NEUTROPHILS % (AUTO) 59.6 % (42-75); PLATELET COUNT 160 X10'3 (140-440); RED BLOOD COUNT 5.07 X10'6 (4.70-6.10); WHITE BLOOD COUNT 6.7 X10'3 (4.5-11.0)
[2020-01-05 13:43] LABS: CLARITY,URINE CLEAR (Clear); COLOR,URINE YELLOW (Yellow); GLUCOSE, URINE NEGATIVE (Neg); KETONES,URINE NEGATIVE (Neg); LEUKOCYTE ESTERASE ,URINE NEGATIVE (Neg); NITRITES, URINE NEGATIVE (Neg); OCCULT BLOOD,URINE NEGATIVE (Neg); PROTEIN,URINE >=300 mg/dl (Neg); UROBILINOGEN,URINE 0.2 E.U/dL (0.2-1.0)
[2020-01-05 13:48] LABS: UA COLLECTION TYPE CLN CATCH MIDSTREAM
[2020-01-05 13:50] LABS: BACTERIA,URINE NONE SEEN /HPF (Neg); MUCUS STRANDS NONE SEEN /LPF (Neg); RBC,URINE 0-2 /HPF (0-2); SQUAMOUS EPITHELIAL CELL,UR FEW /LPF (FEW); WAXY CASTS,URINE 0-3 /LPF (NEGATIVE); WBC,URINE 0-4 /HPF (0-4)
[2020-01-05 13:54] LABS: HEMOGLOBIN A1C 5.4 % (4.5-6.2)
[2020-01-05 13:58] LABS: % IRON SATURATION 39 % (11-46); IRON 102 UG/DL (53-167); TOTAL IRON BINDING CAPACITY 262 UG/DL (259-388)
[2020-01-05 14:00] LABS: TOTAL PROTEIN,URINE RANDOM 395.2 MG/DL; UA PROTEIN/CREATININE RATIO 4.29 mg/mg Cr (0-0.16)
[2020-01-05 14:12] LABS: ALBUMIN 3.3 G/DL (3.4-5.0); ANION GAP 9 (8-16); BLOOD UREA NITROGEN 28 MG/DL (7-18); BUN/CREATININE RATIO 9.3 (5.4-32.0); CHLORIDE 106 MMOL/L (99-107); CHOL/HDL RATIO 2.4 (0.00-4.99); CHOLESTEROL 142 MG/DL (0-200); CREATININE 3.02 MG/DL (0.60-1.10); FERRITIN 90 NG/ML (26-388); GLUCOSE 89 MG/DL (70-104); HDL CHOLESTEROL 59 MG/DL (35-60); LDL CHOLESTEROL 67 MG/DL (50-100); MAGNESIUM 1.8 MG/DL (1.5-2.4); PHOSPHORUS 4.4 MG/DL (2.3-4.5); POTASSIUM 4.1 MMOL/L (3.5-5.1); SODIUM 142 MMOL/L (135-145); TOTAL CARBON DIOXIDE 27.5 MMOL/L (24-32); TRIGLYCERIDES 120 MG/DL (20-135); eGFR 22 ML/MIN
[2020-01-07 14:45] LABS: PSA, ULTRASENSITIVE W/O SERIAL 0.511 ng/mL (0.000-4.000)
== END 2020-01-05 23:59 | disposition home or self-care (01) ==
LOC: LAB 12:35
PROVIDERS: ATTEND Internal Medicine Critical Care Medicine
DX: Z13.6 Encounter for screening for cardiovascular disorders (principal); E11.22 Type 2 diabetes mellitus with diabetic chronic kidney disease; N18.4 Chronic kidney disease, stage 4 (severe); D63.1 Anemia in chronic kidney disease; R94.4 Abnormal results of kidney function studies; E83.40 Disorders of magnesium metabolism, unspecified; E83.30 Disorder of phosphorus metabolism, unspecified; D50.8 Other iron deficiency anemias; E83.52 Hypercalcemia; R80.9 Proteinuria, unspecified; R82.79 Other abnormal findings on microbiological examination of urine; N39.0 Urinary tract infection, site not specified; N40.0 Benign prostatic hyperplasia without lower urinary tract symptoms; R97.20 Elevated prostate specific antigen [PSA]
CPT/HCPCS: 36415; 80061; 80069; 81001; 82306; 82570; 82728; 83036; 83540; 83550; 83735; 83970; 84153; 84156; 85025

== ENCOUNTER 2020-01-06 07:31 | Emergency (ER) | payer BC ==
[~2020-01-06] VITALS: Ht 180.3 cm; Wt 91.4 kg
[2020-01-06 07:48] VITALS: BP 167/100
== END 2020-01-06 08:21 | disposition home or self-care (01) ==
LOC: ER 07:32 → EEVIPCON 07:32 → ER 08:21
DX: J06.9 Acute upper respiratory infection, unspecified (principal); R05 Cough; R52 Pain, unspecified; Z20.828 Contact with and (suspected) exposure to other viral communicable diseases; I12.9 Hypertensive chronic kidney disease with stage 1 through stage 4 chronic kidney disease, or unspecified chronic kidney disease; N18.9 Chronic kidney disease, unspecified; Z98.890 Other specified postprocedural states; Z72.89 Other problems related to lifestyle; Z91.011 Allergy to milk products; Z91.018 Allergy to other foods; Z88.8 Allergy status to other drugs, medicaments and biological substances; Z79.899 Other long term (current) drug therapy
CPT/HCPCS: 36415; 99281; 99283

== ENCOUNTER → 2020-01-09 | Outpatient (CLI) | payer BC | END | disposition home or self-care (01) | LOC: RAD 08:33 | PROVIDERS: ATTEND Orthopaedic Surgery | DX: M17.12 Unilateral primary osteoarthritis, left knee (principal); M79.89 Other specified soft tissue disorders; M65.88 Other synovitis and tenosynovitis, other site | CPT/HCPCS: 73721 ==

== ENCOUNTER 2020-02-11 07:44 | Outpatient (CLI) | payer BC ==
[2020-02-11 08:31] LABS: BASOPHILS # (AUTO) 0.1 X10'3 (0-0.2); EOSINOPHILS # (AUTO) 0.2 X10'3 (0-0.9); EOSINOPHILS % (AUTO) 2.9 % (0-6); HEMATOCRIT 44.1 % (42.0-52.0); HEMOGLOBIN 15.1 g/dl (14.0-17.9); LYMPHOCYTES # (AUTO) 1.9 X10'3 (1.1-4.8); LYMPHOCYTES % (AUTO) 31.6 % (21-51); MEAN CORPUSCULAR HEMOGLOBIN 29.6 PG (27.0-31.0); MEAN CORPUSCULAR HGB CONC 34.3 g/dL (33.0-36.5); MEAN CORPUSCULAR VOLUME 86.5 FL (78-98); MEAN PLATELET VOLUME 8.2 FL (7.4-10.4); MONOCYTES # (AUTO) 0.5 X10'3 (0-0.9); MONOCYTES % (AUTO) 8.3 % (2-12); NEUTROPHILS # (AUTO) 3.4 X10'3 (1.8-7.7); NEUTROPHILS % (AUTO) 56.2 % (42-75); PLATELET COUNT 149 X10'3 (140-440); RED CELL DISTRIBUTION WIDTH 13.4 % (11.5-14.5); WHITE BLOOD COUNT 6.1 X10'3 (4.5-11.0)
[2020-02-11 09:01] LABS: ALANINE AMINOTRANSFERASE 31 U/L (12-78); ALBUMIN 3.7 G/DL (3.4-5.0); ALBUMIN/GLOBULIN RATIO 1.3 (1.1-1.5); ALKALINE PHOSPHATASE 45 IU/L (46-116); ANION GAP 7 (8-16); ASPARTATE AMINO TRANSFERASE 18 U/L (10-37); BILIRUBIN,TOTAL 1.3 MG/DL (0.1-1.0); BLOOD UREA NITROGEN 31 MG/DL (7-18); BUN/CREATININE RATIO 10.7 (5.4-32.0); CALCIUM 8.9 MG/DL (8.5-10.1); CHLORIDE 107 MMOL/L (99-107); GLUCOSE 90 MG/DL (70-104); POTASSIUM 4.1 MMOL/L (3.5-5.1); SODIUM 142 MMOL/L (135-145); TOTAL CARBON DIOXIDE 27.6 MMOL/L (24-32); TOTAL PROTEIN 6.6 G/DL (6.4-8.2); eGFR 23 ML/MIN
== END 2020-02-11 23:59 | disposition home or self-care (01) ==
LOC: LAB 07:44
PROVIDERS: ATTEND Family Medicine
DX: E78.00 Pure hypercholesterolemia, unspecified (principal); R53.83 Other fatigue; R00.1 Bradycardia, unspecified
CPT/HCPCS: 36415; 80053; 84439; 84443; 85025

== ENCOUNTER 2020-03-02 08:53 | Outpatient (CLI) | payer BC ==
[2020-03-02 09:31] LABS: BASOPHILS # (AUTO) 0.1 X10'3 (0-0.2); BASOPHILS % (AUTO) 0.9 % (0-1); EOSINOPHILS # (AUTO) 0.3 X10'3 (0-0.9); EOSINOPHILS % (AUTO) 4.4 % (0-6); HEMATOCRIT 46.4 % (42.0-52.0); HEMOGLOBIN 15.9 g/dl (14.0-17.9); LYMPHOCYTES # (AUTO) 2.2 X10'3 (1.1-4.8); LYMPHOCYTES % (AUTO) 35.9 % (21-51); MEAN CORPUSCULAR HEMOGLOBIN 29.4 PG (27.0-31.0); MEAN CORPUSCULAR HGB CONC 34.2 g/dL (33.0-36.5); MEAN CORPUSCULAR VOLUME 85.8 FL (78-98); MEAN PLATELET VOLUME 8.2 FL (7.4-10.4); MONOCYTES # (AUTO) 0.6 X10'3 (0-0.9); MONOCYTES % (AUTO) 9.1 % (2-12); NEUTROPHILS # (AUTO) 3.1 X10'3 (1.8-7.7); NEUTROPHILS % (AUTO) 49.7 % (42-75); PLATELET COUNT 136 X10'3 (140-440); RED BLOOD COUNT 5.41 X10'6 (4.70-6.10); RED CELL DISTRIBUTION WIDTH 13.1 % (11.5-14.5); WHITE BLOOD COUNT 6.2 X10'3 (4.5-11.0)
[2020-03-02 09:44] LABS: CLARITY,URINE SLIGHTLY CLOUDY (Clear); COLOR,URINE STRAW (Yellow); GLUCOSE, URINE NEGATIVE (Neg); KETONES,URINE NEGATIVE (Neg); LEUKOCYTE ESTERASE ,URINE NEGATIVE (Neg); NITRITES, URINE NEGATIVE (Neg); OCCULT BLOOD,URINE TRACE-INTACT (Neg); PH,URINE 5.5 (4.8-8.0); PROTEIN,URINE >=300 mg/dl (Neg); UROBILINOGEN,URINE 0.2 E.U/dL (0.2-1.0)
[2020-03-02 09:45] LABS: UA COLLECTION TYPE CLN CATCH MIDSTREAM
[2020-03-02 09:55] LABS: ALBUMIN 3.7 G/DL (3.4-5.0); ANION GAP 7 (8-16); BLOOD UREA NITROGEN 35 MG/DL (7-18); BUN/CREATININE RATIO 12.2 (5.4-32.0); CALCIUM 9.3 MG/DL (8.5-10.1); CHLORIDE 107 MMOL/L (99-107); CREATININE 2.87 MG/DL (0.60-1.10); GLUCOSE 94 MG/DL (70-104); PHOSPHORUS 3.9 MG/DL (2.3-4.5); POTASSIUM 3.9 MMOL/L (3.5-5.1); SODIUM 144 MMOL/L (135-145); TOTAL CARBON DIOXIDE 30.2 MMOL/L (24-32); eGFR 23 ML/MIN
[2020-03-02 10:02] LABS: TOTAL PROTEIN,URINE RANDOM 259.8 MG/DL; UA PROTEIN/CREATININE RATIO 2.47 mg/mg Cr (0-0.16)
[2020-03-02 10:03] LABS: SQUAMOUS EPITHELIAL CELL,UR FEW /LPF (FEW)
[2020-03-02 10:05] LABS: BACTERIA,URINE FEW /HPF (Neg); HYALINE CASTS 0-3 /LPF (NEGATIVE); MUCUS STRANDS FEW /LPF (Neg); RBC,URINE 0-2 /HPF (0-2); WBC,URINE 0-4 /HPF (0-4)
[2020-03-02 10:27] LABS: % IRON SATURATION 31 % (11-46); IRON 85 UG/DL (53-167); TOTAL IRON BINDING CAPACITY 277 UG/DL (259-388)
[2020-03-02 10:50] LABS: FERRITIN 105 NG/ML (26-388)
== END 2020-03-02 23:59 | disposition home or self-care (01) ==
LOC: LAB 08:53
PROVIDERS: ATTEND Internal Medicine Critical Care Medicine
DX: N18.4 Chronic kidney disease, stage 4 (severe) (principal); N39.0 Urinary tract infection, site not specified; D63.1 Anemia in chronic kidney disease; R94.4 Abnormal results of kidney function studies; E83.40 Disorders of magnesium metabolism, unspecified; E83.30 Disorder of phosphorus metabolism, unspecified; D50.8 Other iron deficiency anemias; E83.52 Hypercalcemia; R80.9 Proteinuria, unspecified; R82.79 Other abnormal findings on microbiological examination of urine
CPT/HCPCS: 36415; 80069; 81001; 82306; 82570; 82728; 83540; 83550; 83735; 83970; 84156; 85025

== ENCOUNTER 2020-03-09 08:12 | Outpatient (CLI) | payer BC ==
[2020-03-09 08:45] LABS: COLOR,URINE YELLOW (Yellow); GLUCOSE, URINE NEGATIVE (Neg); KETONES,URINE NEGATIVE (Neg); LEUKOCYTE ESTERASE ,URINE NEGATIVE (Neg); NITRITES, URINE NEGATIVE (Neg); OCCULT BLOOD,URINE SMALL (Neg); PROTEIN,URINE >=300 mg/dl (Neg); UROBILINOGEN,URINE 0.2 E.U/dL (0.2-1.0)
[2020-03-09 08:47] LABS: BASOPHILS # (AUTO) 0.1 X10'3 (0-0.2); BASOPHILS % (AUTO) 0.9 % (0-1); EOSINOPHILS # (AUTO) 0.4 X10'3 (0-0.9); EOSINOPHILS % (AUTO) 5.6 % (0-6); HEMATOCRIT 45.1 % (42.0-52.0); HEMOGLOBIN 15.6 g/dl (14.0-17.9); LYMPHOCYTES # (AUTO) 2.1 X10'3 (1.1-4.8); LYMPHOCYTES % (AUTO) 33.1 % (21-51); MEAN CORPUSCULAR HEMOGLOBIN 29.5 PG (27.0-31.0); MEAN CORPUSCULAR HGB CONC 34.6 g/dL (33.0-36.5); MEAN CORPUSCULAR VOLUME 85.4 FL (78-98); MONOCYTES # (AUTO) 0.6 X10'3 (0-0.9); MONOCYTES % (AUTO) 8.6 % (2-12); NEUTROPHILS # (AUTO) 3.4 X10'3 (1.8-7.7); NEUTROPHILS % (AUTO) 51.8 % (42-75); PLATELET COUNT 146 X10'3 (140-440); RED BLOOD COUNT 5.28 X10'6 (4.70-6.10); RED CELL DISTRIBUTION WIDTH 12.9 % (11.5-14.5); WHITE BLOOD COUNT 6.5 X10'3 (4.5-11.0)
[2020-03-09 08:47] LABS: CLARITY,URINE SLIGHTLY CLOUDY (Clear); UA COLLECTION TYPE CLN CATCH MIDSTREAM
[2020-03-09 08:52] LABS: ALBUMIN 3.6 G/DL (3.4-5.0); ANION GAP 5 (8-16); BLOOD UREA NITROGEN 31 MG/DL (7-18); BUN/CREATININE RATIO 11.2 (5.4-32.0); CALCIUM 8.9 MG/DL (8.5-10.1); CHLORIDE 106 MMOL/L (99-107); CREATININE 2.76 MG/DL (0.60-1.10); GLUCOSE 73 MG/DL (70-104); POTASSIUM 3.5 MMOL/L (3.5-5.1); SODIUM 142 MMOL/L (135-145); TOTAL CARBON DIOXIDE 31.2 MMOL/L (24-32); eGFR 24 ML/MIN
[2020-03-09 09:00] LABS: BACTERIA,URINE FEW /HPF (Neg); RBC,URINE 0-2 /HPF (0-2); SQUAMOUS EPITHELIAL CELL,UR FEW /LPF (FEW); WBC,URINE 0-4 /HPF (0-4)
[2020-03-09 09:01] LABS: AMORPHOUS URATES 1+; FINE GRANULAR CAST 0-3 /LPF (NEGATIVE); HYALINE CASTS 0-3 /LPF (NEGATIVE)
== END 2020-03-09 23:59 | disposition home or self-care (01) ==
LOC: LAB 08:12
PROVIDERS: ATTEND Nurse Practitioner Family
DX: Z01.810 Encounter for preprocedural cardiovascular examination (principal); I10 Essential (primary) hypertension; R00.1 Bradycardia, unspecified; N04.1 Nephrotic syndrome with focal and segmental glomerular lesions
CPT/HCPCS: 36415; 80048; 81001; 85025

== ENCOUNTER → 2020-04-09 | Outpatient (CLI) | payer BC ==
[~2020-04-09] MED LIST changes: -CARV3.12 PO; +FURO40TA4 PO; -HYDR-4069 PO; -OLME40TA13 PO; +SIMV-42 PO
== END | disposition home or self-care (01) ==
LOC: RAD 08:30
PROVIDERS: ATTEND Internal Medicine Interventional Cardiology
DX: N04.1 Nephrotic syndrome with focal and segmental glomerular lesions (principal)
CPT/HCPCS: 76775

== ENCOUNTER 2020-05-27 11:50 | Outpatient (CLI) | payer BC ==
[2020-05-27 12:32] LABS: CLARITY,URINE CLEAR (Clear); COLOR,URINE YELLOW (Yellow); GLUCOSE, URINE NEGATIVE (Neg); KETONES,URINE NEGATIVE (Neg); LEUKOCYTE ESTERASE ,URINE TRACE (Neg); NITRITES, URINE NEGATIVE (Neg); OCCULT BLOOD,URINE TRACE-INTACT (Neg); PH,URINE 5.5 (4.8-8.0); PROTEIN,URINE 100 mg/dl (Neg); UROBILINOGEN,URINE 0.2 E.U/dL (0.2-1.0)
[2020-05-27 12:37] LABS: UA COLLECTION TYPE CLN CATCH MIDSTREAM
[2020-05-27 12:39] LABS: BACTERIA,URINE NONE SEEN /HPF (Neg); RBC,URINE 0-2 /HPF (0-2); SQUAMOUS EPITHELIAL CELL,UR FEW /LPF (FEW); WBC,URINE 0-4 /HPF (0-4)
[2020-05-27 12:42] LABS: BASOPHILS % (AUTO) 0.6 % (0-1); EOSINOPHILS # (AUTO) 0.4 X10'3 (0-0.9); EOSINOPHILS % (AUTO) 4.3 % (0-6); HEMATOCRIT 43.7 % (42.0-52.0); HEMOGLOBIN 15.2 g/dl (14.0-17.9); LYMPHOCYTES # (AUTO) 2.6 X10'3 (1.1-4.8); LYMPHOCYTES % (AUTO) 31.4 % (21-51); MEAN CORPUSCULAR HGB CONC 34.7 g/dL (33.0-36.5); MEAN CORPUSCULAR VOLUME 83.6 FL (78-98); MEAN PLATELET VOLUME 7.9 FL (7.4-10.4); MONOCYTES # (AUTO) 0.7 X10'3 (0-0.9); MONOCYTES % (AUTO) 8.5 % (2-12); NEUTROPHILS # (AUTO) 4.5 X10'3 (1.8-7.7); NEUTROPHILS % (AUTO) 55.2 % (42-75); PLATELET COUNT 162 X10'3 (140-440); RED BLOOD COUNT 5.23 X10'6 (4.70-6.10); RED CELL DISTRIBUTION WIDTH 13.7 % (11.5-14.5); WHITE BLOOD COUNT 8.1 X10'3 (4.5-11.0)
[2020-05-27 12:57] LABS: % IRON SATURATION 37 % (11-46); ALBUMIN 4.2 G/DL (3.4-5.0); ANION GAP 10 (8-16); BLOOD UREA NITROGEN 36 MG/DL (7-18); BUN/CREATININE RATIO 12.1 (5.4-32.0); CALCIUM 9.2 MG/DL (8.5-10.1); CHLORIDE 105 MMOL/L (99-107); CREATININE 2.98 MG/DL (0.60-1.10); FERRITIN 167 NG/ML (26-388); GLUCOSE 80 MG/DL (70-104); IRON 108 UG/DL (53-167); MAGNESIUM 2.1 MG/DL (1.5-2.4); PHOSPHORUS 4.4 MG/DL (2.3-4.5); POTASSIUM 3.7 MMOL/L (3.5-5.1); SODIUM 143 MMOL/L (135-145); TOTAL CARBON DIOXIDE 28.2 MMOL/L (24-32); TOTAL IRON BINDING CAPACITY 290 UG/DL (259-388); eGFR 22 ML/MIN
[2020-05-27 12:59] LABS: UA PROTEIN/CREATININE RATIO 2.35 mg/mg Cr (0-0.16)
== END 2020-05-27 23:59 | disposition home or self-care (01) ==
LOC: LAB 11:50
PROVIDERS: ATTEND Internal Medicine Critical Care Medicine
DX: N18.4 Chronic kidney disease, stage 4 (severe) (principal); D63.1 Anemia in chronic kidney disease; R94.4 Abnormal results of kidney function studies; D50.8 Other iron deficiency anemias; E55.9 Vitamin D deficiency, unspecified; R80.9 Proteinuria, unspecified; R82.79 Other abnormal findings on microbiological examination of urine; N39.0 Urinary tract infection, site not specified
CPT/HCPCS: 36415; 80069; 81001; 82306; 82570; 82728; 83540; 83550; 83735; 83970; 84156; 85025; 87088

== ENCOUNTER 2020-07-12 11:51 | Outpatient (CLI) | payer BC | END 2020-07-12 23:59 | disposition home or self-care (01) | LOC: LAB 11:51 | PROVIDERS: ATTEND Internal Medicine | DX: N18.9 Chronic kidney disease, unspecified (principal) | CPT/HCPCS: 36415; 86900; 86901 ==

== ENCOUNTER 2020-07-15 07:46 | Emergency (ER) | payer BC ==
[~2020-07-15] VITALS: Ht 180.3 cm; Wt 90.9 kg
[2020-07-15] MEDS ORDERED: meclizine 12.5mg tablet PO ONE ×2 (07:55→11:00)
[2020-07-15] MEDS ORDERED: proCHLORperazine 10 MG/2 ml inj IV ONE (08:30)
[2020-07-15 08:51] LABS: BASOPHILS # (AUTO) 0.1 X10'3 (0-0.2); BASOPHILS % (AUTO) 0.6 % (0-1); EOSINOPHILS # (AUTO) 0.2 X10'3 (0-0.9); EOSINOPHILS % (AUTO) 1.6 % (0-6); HEMATOCRIT 42.3 % (42.0-52.0); HEMOGLOBIN 14.6 g/dl (14.0-17.9); LYMPHOCYTES # (AUTO) 2.1 X10'3 (1.1-4.8); LYMPHOCYTES % (AUTO) 17.4 % (21-51); MEAN CORPUSCULAR HEMOGLOBIN 28.8 PG (27.0-31.0); MEAN CORPUSCULAR HGB CONC 34.4 g/dL (33.0-36.5); MEAN CORPUSCULAR VOLUME 83.8 FL (78-98); MONOCYTES # (AUTO) 0.7 X10'3 (0-0.9); MONOCYTES % (AUTO) 5.6 % (2-12); NEUTROPHILS # (AUTO) 9.1 X10'3 (1.8-7.7); NEUTROPHILS % (AUTO) 74.8 % (42-75); PLATELET COUNT 141 X10'3 (140-440); RED BLOOD COUNT 5.05 X10'6 (4.70-6.10); RED CELL DISTRIBUTION WIDTH 13.6 % (11.5-14.5); WHITE BLOOD COUNT 12.1 X10'3 (4.5-11.0)
[2020-07-15 09:04] LABS: ALANINE AMINOTRANSFERASE 57 U/L (12-78); ALBUMIN 3.8 G/DL (3.4-5.0); ALBUMIN/GLOBULIN RATIO 1.1 (1.1-1.5); ALKALINE PHOSPHATASE 58 IU/L (46-116); ANION GAP 9 (8-16); ASPARTATE AMINO TRANSFERASE 32 U/L (10-37); BILIRUBIN,TOTAL 1.4 MG/DL (0.1-1.0); BLOOD UREA NITROGEN 40 MG/DL (7-18); BUN/CREATININE RATIO 12.9 (5.4-32.0); CALCIUM 8.8 MG/DL (8.5-10.1); CHLORIDE 107 MMOL/L (99-107); GLUCOSE 179 MG/DL (70-104); POTASSIUM 4.6 MMOL/L (3.5-5.1); SODIUM 141 MMOL/L (135-145); TOTAL CARBON DIOXIDE 25.3 MMOL/L (24-32); TOTAL PROTEIN 7.2 G/DL (6.4-8.2); eGFR 21 ML/MIN
[2020-07-15] MEDS ORDERED: ONDA4TAB6 PO (09:49)
[2020-07-15] MEDS ORDERED: MECL-159 PO (09:49)
[2020-07-15] MEDS ORDERED: PROC25SU31 RC (09:49)
--- NOTE | 2020-07-15 10:32 | NUR ---
PATIENT UP TO RESTROOM WITH MINIMAL ASSISTANCE
[2020-07-15 10:45] VITALS: BP 151/98
== END 2020-07-15 11:51 | disposition home or self-care (01) ==
LOC: ER 07:46 → EEVIPCON 07:46 → ER 11:51
DX: R42 Dizziness and giddiness (principal); I12.9 Hypertensive chronic kidney disease with stage 1 through stage 4 chronic kidney disease, or unspecified chronic kidney disease; N18.9 Chronic kidney disease, unspecified; R11.2 Nausea with vomiting, unspecified; Z98.890 Other specified postprocedural states; Z72.89 Other problems related to lifestyle; Z91.011 Allergy to milk products; Z91.018 Allergy to other foods; Z88.8 Allergy status to other drugs, medicaments and biological substances; Z79.899 Other long term (current) drug therapy
CPT/HCPCS: 36415; 80053; 84484; 85025; 93005; 96374; 99284; J0780; J8597

== ENCOUNTER 2020-08-09 07:38 | Outpatient (CLI) | payer BC ==
[~2020-08-09 07:38] MED LIST changes: +MECL-159 PO; +ONDA4TAB6 PO; +PROC25SU31 RC
[2020-08-09 11:41] LABS: HIV ANTIBODY 1&2 RAPID NON-REACTIVE (Neg)
[2020-08-10 17:23] LABS: EBV AB VCA, IGM <36.0 U/mL (0.0-35.9); HEP B CORE AB, TOT Negative (Negative); HEPATITIS C ANTIBODY <0.1 s/co ratio (0.0-0.9); PSA, ULTRASENSITIVE W/O SERIAL 0.802 ng/mL (0.000-4.000)
[2020-08-11 18:39] LABS: CYTOMEGALOVIRUS AB, IGG >10.00 U/mL (0.00-0.59)
== END 2020-08-09 23:59 | disposition home or self-care (01) ==
LOC: LAB 07:38
PROVIDERS: ATTEND Internal Medicine
DX: Z03.89 Encounter for observation for other suspected diseases and conditions ruled out (principal); N18.6 End stage renal disease; R93.5 Abnormal findings on diagnostic imaging of other abdominal regions, including retroperitoneum
CPT/HCPCS: 36415; 82040; 84153; 86592; 86644; 86663; 86664; 86665; 86703; 86704; 86706; 86803; 86900; 86901

== ENCOUNTER 2020-08-09 07:49 | Outpatient (CLI) | payer BC | END 2020-08-09 23:59 | disposition home or self-care (01) | LOC: LAB 07:49 | PROVIDERS: ATTEND Internal Medicine | DX: Z00.00 Encounter for general adult medical examination without abnormal findings (principal); I10 Essential (primary) hypertension | CPT/HCPCS: 36415 ==

== ENCOUNTER 2020-08-16 08:52 | Outpatient (CLI) | payer BC ==
[~2020-08-16 08:52] MED LIST changes: -PROC25SU31 RC
== END 2020-08-16 23:59 | disposition home or self-care (01) ==
LOC: LAB 08:52
PROVIDERS: ATTEND Family Medicine
DX: E29.8 Other testicular dysfunction (principal); R53.83 Other fatigue
CPT/HCPCS: 36415; 84402; 84403

== ENCOUNTER 2020-09-21 07:56 | Outpatient (CLI) | payer BC ==
[2020-09-21 08:30] LABS: CLARITY,URINE CLEAR (Clear); COLOR,URINE STRAW (Yellow); GLUCOSE, URINE NEGATIVE (Neg); KETONES,URINE NEGATIVE (Neg); LEUKOCYTE ESTERASE ,URINE NEGATIVE (Neg); NITRITES, URINE NEGATIVE (Neg); OCCULT BLOOD,URINE TRACE-INTACT (Neg); PH,URINE 5.5 (4.8-8.0); PROTEIN,URINE 100 mg/dl (Neg); UROBILINOGEN,URINE 0.2 E.U/dL (0.2-1.0)
[2020-09-21 08:33] LABS: BASOPHILS # (AUTO) 0.1 X10'3 (0-0.2); EOSINOPHILS # (AUTO) 0.4 X10'3 (0-0.9); EOSINOPHILS % (AUTO) 5.1 % (0-6); HEMATOCRIT 44.6 % (42.0-52.0); LYMPHOCYTES % (AUTO) 27.1 % (21-51); MEAN CORPUSCULAR HEMOGLOBIN 28.5 PG (27.0-31.0); MEAN CORPUSCULAR HGB CONC 33.6 g/dL (33.0-36.5); MEAN CORPUSCULAR VOLUME 84.8 FL (78-98); MEAN PLATELET VOLUME 7.9 FL (7.4-10.4); MONOCYTES # (AUTO) 0.7 X10'3 (0-0.9); MONOCYTES % (AUTO) 9.4 % (2-12); NEUTROPHILS # (AUTO) 4.3 X10'3 (1.8-7.7); NEUTROPHILS % (AUTO) 57.4 % (42-75); PLATELET COUNT 158 X10'3 (140-440); RED BLOOD COUNT 5.26 X10'6 (4.70-6.10); RED CELL DISTRIBUTION WIDTH 13.6 % (11.5-14.5); WHITE BLOOD COUNT 7.4 X10'3 (4.5-11.0)
[2020-09-21 08:45] LABS: ALBUMIN 3.9 G/DL (3.4-5.0); ANION GAP 11 (8-16); BLOOD UREA NITROGEN 34 MG/DL (7-18); BUN/CREATININE RATIO 10.9 (5.4-32.0); CALCIUM 9.1 MG/DL (8.5-10.1); CHLORIDE 106 MMOL/L (99-107); CREATININE 3.12 MG/DL (0.60-1.10); GLUCOSE 100 MG/DL (70-104); MAGNESIUM 2.1 MG/DL (1.5-2.4); POTASSIUM 4.4 MMOL/L (3.5-5.1); SODIUM 144 MMOL/L (135-145); TOTAL CARBON DIOXIDE 26.7 MMOL/L (24-32); eGFR 21 ML/MIN
[2020-09-21 08:49] LABS: UA COLLECTION TYPE CLN CATCH MIDSTREAM
[2020-09-21 08:50] LABS: MUCUS STRANDS FEW /LPF (Neg); SQUAMOUS EPITHELIAL CELL,UR FEW /LPF (FEW)
[2020-09-21 08:51] LABS: BACTERIA,URINE FEW /HPF (Neg); RBC,URINE 0-2 /HPF (0-2); TRANSITIONAL EPI CELLS,URINE FEW /HPF; WBC,URINE 0-4 /HPF (0-4)
[2020-09-21 08:52] LABS: HYALINE CASTS 0-3 /LPF (NEGATIVE)
[2020-09-21 08:56] LABS: % IRON SATURATION 28 % (11-46); IRON 89 UG/DL (53-167); TOTAL IRON BINDING CAPACITY 314 UG/DL (259-388)
[2020-09-21 09:09] LABS: UA PROTEIN/CREATININE RATIO 3.36 mg/mg Cr (0-0.16)
[2020-09-21 09:32] LABS: FERRITIN 93 NG/ML (26-388); PHOSPHORUS 3.9 MG/DL (2.3-4.5)
== END 2020-09-21 23:59 | disposition home or self-care (01) ==
LOC: LAB 07:56
PROVIDERS: ATTEND Internal Medicine Critical Care Medicine
DX: N18.4 Chronic kidney disease, stage 4 (severe) (principal); D63.1 Anemia in chronic kidney disease; R94.4 Abnormal results of kidney function studies; D50.8 Other iron deficiency anemias; E55.9 Vitamin D deficiency, unspecified; R80.9 Proteinuria, unspecified; R82.79 Other abnormal findings on microbiological examination of urine; N39.0 Urinary tract infection, site not specified
CPT/HCPCS: 36415; 80069; 81001; 82306; 82570; 82728; 83540; 83550; 83735; 83970; 84156; 85025

== ENCOUNTER 2020-09-27 10:28 | Outpatient (CLI) | payer BC ==
[2020-09-27 11:55] LABS: CLARITY,URINE CLEAR (Clear); COLOR,URINE STRAW (Yellow); GLUCOSE, URINE NEGATIVE (Neg); KETONES,URINE NEGATIVE (Neg); LEUKOCYTE ESTERASE ,URINE NEGATIVE (Neg); NITRITES, URINE NEGATIVE (Neg); OCCULT BLOOD,URINE TRACE-INTACT (Neg); PH,URINE 5.5 (4.8-8.0); PROTEIN,URINE 100 mg/dl (Neg); UROBILINOGEN,URINE 0.2 E.U/dL (0.2-1.0)
[2020-09-27 12:00] LABS: UA COLLECTION TYPE VOIDED
[2020-09-27 12:05] LABS: BACTERIA,URINE FEW /HPF (Neg); RBC,URINE 0-2 /HPF (0-2); SQUAMOUS EPITHELIAL CELL,UR FEW /LPF (FEW); WBC,URINE NONE SEEN /HPF (0-4)
== END 2020-09-27 23:59 | disposition home or self-care (01) ==
LOC: RAD 10:28
PROVIDERS: ATTEND Internal Medicine Critical Care Medicine
DX: N28.1 Cyst of kidney, acquired (principal); N18.4 Chronic kidney disease, stage 4 (severe); N39.0 Urinary tract infection, site not specified
CPT/HCPCS: 76775; 81001

== ENCOUNTER 2020-10-20 13:38 | Outpatient (CLI) | payer BC | END 2020-10-20 23:59 | disposition home or self-care (01) | LOC: VAS 13:38 | PROVIDERS: ATTEND Internal Medicine Critical Care Medicine | DX: N18.4 Chronic kidney disease, stage 4 (severe) (principal) | CPT/HCPCS: 93931; 93971 ==

== ENCOUNTER 2020-11-07 11:05 | Emergency (ER) | payer BC ==
[~2020-11-07] VITALS: Ht 180.3 cm; Wt 92.7 kg
[~2020-11-07 11:05] MED LIST changes: +LABETALOL PO; -MECL-159 PO; -ONDA4TAB6 PO
[2020-11-07] MEDS ORDERED: proparacaine 0.5% ophthalmic drops 15ml EACHEYE ONE (11:15)
[2020-11-07 11:21] VITALS: BP 133/81
[2020-11-07] MEDS ORDERED: CIPR2.5D21 LEFTEYE (11:28)
== END 2020-11-07 11:39 | disposition home or self-care (01) ==
LOC: EEVIPCON 11:06 → ER 11:06
DX: H00.015 Hordeolum externum left lower eyelid (principal); Z91.018 Allergy to other foods; Z88.5 Allergy status to narcotic agent; Z91.011 Allergy to milk products; Z79.899 Other long term (current) drug therapy
CPT/HCPCS: 99283

== ENCOUNTER 2020-11-10 09:44 | Day surgery (SDC) | payer BC ==
[2020-11-03 13:42] LABS: CLARITY,URINE CLEAR (Clear); COLOR,URINE STRAW (Yellow); GLUCOSE, URINE NEGATIVE (Neg); KETONES,URINE NEGATIVE (Neg); LEUKOCYTE ESTERASE ,URINE NEGATIVE (Neg); NITRITES, URINE NEGATIVE (Neg); OCCULT BLOOD,URINE TRACE-INTACT (Neg); PROTEIN,URINE 100 mg/dl (Neg); UROBILINOGEN,URINE 0.2 E.U/dL (0.2-1.0)
[2020-11-03 13:44] LABS: BASOPHILS % (AUTO) 0.8 % (0-1); EOSINOPHILS # (AUTO) 0.2 X10'3 (0-0.9); HEMATOCRIT 42.5 % (42.0-52.0); HEMOGLOBIN 14.7 g/dl (14.0-17.9); LYMPHOCYTES # (AUTO) 2.2 X10'3 (1.1-4.8); LYMPHOCYTES % (AUTO) 35.7 % (21-51); MEAN CORPUSCULAR HEMOGLOBIN 28.8 PG (27.0-31.0); MEAN CORPUSCULAR HGB CONC 34.5 g/dL (33.0-36.5); MEAN CORPUSCULAR VOLUME 83.5 FL (78-98); MEAN PLATELET VOLUME 8.3 FL (7.4-10.4); MONOCYTES # (AUTO) 0.7 X10'3 (0-0.9); MONOCYTES % (AUTO) 10.8 % (2-12); NEUTROPHILS % (AUTO) 49.7 % (42-75); PLATELET COUNT 149 X10'3 (140-440); RED BLOOD COUNT 5.09 X10'6 (4.70-6.10); RED CELL DISTRIBUTION WIDTH 13.6 % (11.5-14.5)
[2020-11-03 13:49] LABS: UA COLLECTION TYPE NON-SPECIFIED
[2020-11-03 13:52] LABS: SQUAMOUS EPITHELIAL CELL,UR FEW /LPF (FEW); WBC,URINE 0-4 /HPF (0-4)
[2020-11-03 13:53] LABS: BACTERIA,URINE NONE SEEN /HPF (Neg); RBC,URINE 0-2 /HPF (0-2)
[2020-11-03 13:58] LABS: ALANINE AMINOTRANSFERASE 39 U/L (12-78); ALBUMIN 4.1 G/DL (3.4-5.0); ALBUMIN/GLOBULIN RATIO 1.3 (1.1-1.5); ALKALINE PHOSPHATASE 60 IU/L (46-116); ANION GAP 8 (8-16); ASPARTATE AMINO TRANSFERASE 22 U/L (10-37); BILIRUBIN,TOTAL 1.5 MG/DL (0.1-1.0); BLOOD UREA NITROGEN 42 MG/DL (7-18); BUN/CREATININE RATIO 12.9 (5.4-32.0); CALCIUM 8.8 MG/DL (8.5-10.1); CHLORIDE 104 MMOL/L (99-107); CREATININE 3.25 MG/DL (0.60-1.10); GLUCOSE 81 MG/DL (70-104); POTASSIUM 3.9 MMOL/L (3.5-5.1); SODIUM 141 MMOL/L (135-145); TOTAL CARBON DIOXIDE 29.4 MMOL/L (24-32); TOTAL PROTEIN 7.2 G/DL (6.4-8.2); eGFR 20 ML/MIN
[~2020-11-10] VITALS: Ht 177.8 cm; Wt 92.5 kg
[~2020-11-10 09:44] MED LIST changes: +CIPR2.5D21 LEFTEYE; +DOCUMENT DATE & TIME OF BETA-BLOCKER PO ONE; +cefazolin/dext.iso 2gm/100ml IV ONE; +famotidine 20mg tablet PO ONE; +ringers solution, lacted 1,000 ML IV SCH
[2020-11-10 09:50] VITALS: BP 118/74
[2020-11-10] MEDS ORDERED: BUPIVAcaine/PF 2.5mg/ml (0.25%) 10ml vial ONE (11:04)
[2020-11-10] MEDS ORDERED: heparin 10,000 units/1 ML INJ ONE (11:04)
[2020-11-10] MEDS ORDERED: LIDOcaine 1% W/epiNEPHrine 1:200,000 10ml vial ONE (11:04)
[2020-11-10] MEDS ORDERED: sevoflurane 250ml liquid IH ONE (11:38)
[2020-11-10] MEDS ORDERED: fentaNYL/PF 50MCG/1 ML 2ML syringe ONE (11:39)
[2020-11-10] MEDS ORDERED: midazolam 1 mg/ML 2ml injection ONE (11:40)
[2020-11-10] MEDS ORDERED: morphine 4 MG/ML inj SYRINge IV PRN (11:40)
[2020-11-10] MEDS ORDERED: meperidine/PF 25mg/ml syringe IV PRN ×3 (11:40)
[2020-11-10] MEDS ORDERED: proCHLORperazine 10 MG/2 ml inj IV PRN (11:40)
[2020-11-10] MEDS ORDERED: propofol inj 20 ML IV ONE (11:40)
[2020-11-10] MEDS ORDERED: morphine 2 MG/ML inj. syringe IV PRN (11:40)
[2020-11-10] MEDS ORDERED: ringers solution, lacted 1,000 ML IV SCH (11:40)
[2020-11-10] MEDS ORDERED: ondansetron/PF 4mg/2ml inj IV PRN (11:40)
[2020-11-10] MEDS ORDERED: heparin 1,000unit/ml 10ml vial 10 ML ONE (13:10)
[2020-11-10] MEDS ORDERED: dexamethasone sod phosphate 4mg/ml inj. ONE (13:10)
[2020-11-10] MEDS ORDERED: ondansetron/PF 4mg/2ml inj ONE (13:11)
[2020-11-10 13:20] VITALS: BP 132/86
--- NOTE | 2020-11-10 13:20 | NUR ---
Received from OR via [facility], accompanied by Anesthesiologist and report given by Anesthesiologist. PATIENT WAKING UP, NO S/S OF PAIN, V/S WNL, SCD ON, 20G TO LUE, RIGHT WRIST AV FISTULA DERMABONDED W/ NO DRESSING WITH NO S/S OF COMPLICATION.
[2020-11-10 13:30] VITALS: BP 126/79
[2020-11-10 13:40] VITALS: BP 136/77
[2020-11-10 13:50] VITALS: BP 131/74
--- NOTE | 2020-11-10 13:50 | NUR ---
PATIENT A&OX4, DENIES PAIN, V/S WNL, SCD OFF, 20G TO DENISE D/C, RIGHT WRIST AV FISTULA DERMABONDED W/ NO DRESSING WITH NO S/S OF COMPLICATION. . I HAVE REVIEWED D/C ORDERS WITH PATIENT AND HIS FRIEND AND THEY HAVE VERBALIZED UNDERSTANDING. PATIENT D/C HOME WITH ALL BELONGINGS AND FRIEND GAVE TRANSPORT.
== END 2020-11-10 13:50 | disposition home or self-care (01) ==
LOC: PAS 09:44
PROVIDERS: ATTEND Surgery
DX: I12.9 Hypertensive chronic kidney disease with stage 1 through stage 4 chronic kidney disease, or unspecified chronic kidney disease (principal); N18.4 Chronic kidney disease, stage 4 (severe); Z91.018 Allergy to other foods; Z95.0 Presence of cardiac pacemaker; Z98.890 Other specified postprocedural states; Z88.8 Allergy status to other drugs, medicaments and biological substances; Z87.891 Personal history of nicotine dependence; Z79.899 Other long term (current) drug therapy; Z83.6 Family history of other diseases of the respiratory system
CPT/HCPCS: 36415; 36818; 80053; 81001; 82948; 85025; J1100; J1644; J2250; J2405; J2704; J3010; J3490; J7040; J7120; A4215; A4618; A7000

== ENCOUNTER 2020-12-23 07:38 | Outpatient (CLI) | payer BC ==
[~2020-12-23 07:38] MED LIST changes: -CIPR2.5D21 LEFTEYE; -DOCUMENT DATE & TIME OF BETA-BLOCKER PO ONE; -cefazolin/dext.iso 2gm/100ml IV ONE; -famotidine 20mg tablet PO ONE; -ringers solution, lacted 1,000 ML IV SCH
[2020-12-23 08:08] LABS: BASOPHILS # (AUTO) 0.1 X10'3 (0-0.2); BASOPHILS % (AUTO) 1.2 % (0-1); EOSINOPHILS # (AUTO) 0.3 X10'3 (0-0.9); EOSINOPHILS % (AUTO) 4.3 % (0-6); HEMATOCRIT 41.6 % (42.0-52.0); HEMOGLOBIN 14.3 g/dl (14.0-17.9); LYMPHOCYTES # (AUTO) 1.8 X10'3 (1.1-4.8); LYMPHOCYTES % (AUTO) 28.1 % (21-51); MEAN CORPUSCULAR HEMOGLOBIN 28.5 PG (27.0-31.0); MEAN CORPUSCULAR HGB CONC 34.3 g/dL (33.0-36.5); MEAN CORPUSCULAR VOLUME 83.1 FL (78-98); MONOCYTES # (AUTO) 0.7 X10'3 (0-0.9); NEUTROPHILS # (AUTO) 3.7 X10'3 (1.8-7.7); NEUTROPHILS % (AUTO) 56.4 % (42-75); PLATELET COUNT 143 X10'3 (140-440); RED CELL DISTRIBUTION WIDTH 13.9 % (11.5-14.5); WHITE BLOOD COUNT 6.5 X10'3 (4.5-11.0)
[2020-12-23 08:09] LABS: CLARITY,URINE CLEAR (Clear); COLOR,URINE YELLOW (Yellow); GLUCOSE, URINE NEGATIVE (Neg); KETONES,URINE NEGATIVE (Neg); LEUKOCYTE ESTERASE ,URINE NEGATIVE (Neg); NITRITES, URINE NEGATIVE (Neg); OCCULT BLOOD,URINE NEGATIVE (Neg); PH,URINE 5.5 (4.8-8.0); PROTEIN,URINE >=300 mg/dl (Neg); UROBILINOGEN,URINE 0.2 E.U/dL (0.2-1.0)
[2020-12-23 08:12] LABS: UA COLLECTION TYPE CLN CATCH MIDSTREAM
[2020-12-23 08:16] LABS: BACTERIA,URINE NONE SEEN /HPF (Neg); FINE GRANULAR CAST 0-3 /LPF (NEGATIVE); HYALINE CASTS 0-3 /LPF (NEGATIVE); MUCUS STRANDS NONE SEEN /LPF (Neg); RBC,URINE NONE SEEN /HPF (0-2); SQUAMOUS EPITHELIAL CELL,UR FEW /LPF (FEW); WBC,URINE NONE SEEN /HPF (0-4)
[2020-12-23 08:28] LABS: TOTAL PROTEIN,URINE RANDOM 149.2 MG/DL
[2020-12-23 08:30] LABS: % IRON SATURATION 19 % (11-46); IRON 56 UG/DL (53-167); TOTAL IRON BINDING CAPACITY 289 UG/DL (259-388)
[2020-12-23 08:31] LABS: UA PROTEIN/CREATININE RATIO 1.25 mg/mg Cr (0-0.16)
[2020-12-23 08:45] LABS: ALBUMIN 3.7 G/DL (3.4-5.0); ANION GAP 12 (8-16); BLOOD UREA NITROGEN 36 MG/DL (7-18); BUN/CREATININE RATIO 11.3 (5.4-32.0); CALCIUM 8.5 MG/DL (8.5-10.1); CHLORIDE 108 MMOL/L (99-107); CREATININE 3.18 MG/DL (0.60-1.10); FERRITIN 61 NG/ML (26-388); GLUCOSE 104 MG/DL (70-104); MAGNESIUM 2.1 MG/DL (1.5-2.4); PHOSPHORUS 3.9 MG/DL (2.3-4.5); POTASSIUM 4.2 MMOL/L (3.5-5.1); SODIUM 143 MMOL/L (135-145); TOTAL CARBON DIOXIDE 22.9 MMOL/L (24-32); eGFR 20 ML/MIN
== END 2020-12-23 23:59 | disposition home or self-care (01) ==
LOC: LAB 07:38
PROVIDERS: ATTEND Internal Medicine Critical Care Medicine
DX: N18.4 Chronic kidney disease, stage 4 (severe) (principal); D63.1 Anemia in chronic kidney disease; R94.4 Abnormal results of kidney function studies; D50.8 Other iron deficiency anemias; E55.9 Vitamin D deficiency, unspecified; R80.9 Proteinuria, unspecified; R82.79 Other abnormal findings on microbiological examination of urine; N39.0 Urinary tract infection, site not specified; R94.6 Abnormal results of thyroid function studies
CPT/HCPCS: 36415; 80069; 81001; 82306; 82570; 82728; 83540; 83550; 83735; 83970; 84156; 84443; 85025

== ENCOUNTER 2021-02-15 10:10 | Outpatient (CLI) | payer BC | END 2021-02-15 23:59 | disposition home or self-care (01) | LOC: LAB 10:10 | PROVIDERS: ATTEND Internal Medicine | DX: N18.9 Chronic kidney disease, unspecified (principal) | CPT/HCPCS: 36415 ==

== ENCOUNTER 2021-03-21 11:52 | Outpatient (CLI) | payer BC | END 2021-03-21 23:59 | disposition home or self-care (01) | LOC: LAB 11:52 | PROVIDERS: ATTEND Internal Medicine | DX: N18.9 Chronic kidney disease, unspecified (principal) | CPT/HCPCS: 36415 ==

== ENCOUNTER 2021-04-25 07:34 | Outpatient (CLI) | payer BC | END 2021-04-25 23:59 | disposition home or self-care (01) | LOC: LAB 07:34 | PROVIDERS: ATTEND Internal Medicine | DX: N18.9 Chronic kidney disease, unspecified (principal) | CPT/HCPCS: 36415 ==

== ENCOUNTER 2021-05-18 09:45 | Outpatient (CLI) | payer BC | END 2021-05-18 23:59 | disposition home or self-care (01) | LOC: LAB 09:45 | PROVIDERS: ATTEND Internal Medicine | DX: N18.9 Chronic kidney disease, unspecified (principal) | CPT/HCPCS: 36415 ==

== ENCOUNTER 2021-06-07 09:31 | Outpatient (CLI) | payer BC ==
[2021-06-07 10:16] LABS: BASOPHILS # (AUTO) 0.1 X10'3 (0-0.2); EOSINOPHILS # (AUTO) 0.2 X10'3 (0-0.9); EOSINOPHILS % (AUTO) 2.6 % (0-6); HEMATOCRIT 43.7 % (42.0-52.0); HEMOGLOBIN 15.2 g/dl (14.0-17.9); LYMPHOCYTES # (AUTO) 1.9 X10'3 (1.1-4.8); LYMPHOCYTES % (AUTO) 30.2 % (21-51); MEAN CORPUSCULAR HEMOGLOBIN 29.1 PG (27.0-31.0); MEAN CORPUSCULAR HGB CONC 34.8 g/dL (33.0-36.5); MEAN CORPUSCULAR VOLUME 83.6 FL (78-98); MEAN PLATELET VOLUME 8.1 FL (7.4-10.4); MONOCYTES # (AUTO) 0.5 X10'3 (0-0.9); MONOCYTES % (AUTO) 7.6 % (2-12); NEUTROPHILS # (AUTO) 3.6 X10'3 (1.8-7.7); NEUTROPHILS % (AUTO) 58.6 % (42-75); PLATELET COUNT 139 X10'3 (140-440); RED BLOOD COUNT 5.23 X10'6 (4.70-6.10); WHITE BLOOD COUNT 6.2 X10'3 (4.5-11.0)
[2021-06-07 10:25] LABS: TOTAL PROTEIN,URINE RANDOM 125.2 MG/DL
[2021-06-07 10:28] LABS: CLARITY,URINE CLEAR (Clear); GLUCOSE, URINE NEGATIVE (Neg); KETONES,URINE NEGATIVE (Neg); LEUKOCYTE ESTERASE ,URINE NEGATIVE (Neg); NITRITES, URINE NEGATIVE (Neg); OCCULT BLOOD,URINE TRACE-LYSED (Neg); PH,URINE 5.5 (4.8-8.0); PROTEIN,URINE 100 mg/dl (Neg); UA PROTEIN/CREATININE RATIO 3.38 mg/mg Cr (0-0.16); UROBILINOGEN,URINE 0.2 E.U/dL (0.2-1.0)
[2021-06-07 10:40] LABS: ANION GAP 9 (8-16); BLOOD UREA NITROGEN 31 MG/DL (7-18); BUN/CREATININE RATIO 9.5 (5.4-32.0); CHLORIDE 107 MMOL/L (99-107); CREATININE 3.25 MG/DL (0.60-1.10); GLUCOSE 98 MG/DL (70-104); POTASSIUM 4.3 MMOL/L (3.5-5.1); SODIUM 142 MMOL/L (135-145); eGFR 20 ML/MIN
[2021-06-07 10:41] LABS: ALBUMIN 3.6 G/DL (3.4-5.0); CALCIUM 8.8 MG/DL (8.5-10.1); FERRITIN 74 NG/ML (26-388); MAGNESIUM 2.1 MG/DL (1.5-2.4); PHOSPHORUS 3.4 MG/DL (2.3-4.5)
[2021-06-07 10:54] LABS: COLOR,URINE STRAW (Yellow); UA COLLECTION TYPE CLN CATCH MIDSTREAM
[2021-06-07 10:57] LABS: HYALINE CASTS 0-3 /LPF (NEGATIVE)
[2021-06-07 10:59] LABS: SQUAMOUS EPITHELIAL CELL,UR FEW /LPF (FEW)
[2021-06-07 11:00] LABS: WBC,URINE 0-4 /HPF (0-4)
[2021-06-07 11:01] LABS: BACTERIA,URINE FEW /HPF (Neg); RBC,URINE 0-2 /HPF (0-2)
[2021-06-07 11:27] LABS: % IRON SATURATION 21 % (11-46); IRON 64 UG/DL (53-167); TOTAL IRON BINDING CAPACITY 301 UG/DL (259-388)
[2021-06-07 11:51] LABS: HEMOGLOBIN A1C 5.4 % (4.5-6.2)
== END 2021-06-07 23:59 | disposition home or self-care (01) ==
LOC: LAB 09:31
PROVIDERS: ATTEND Internal Medicine Critical Care Medicine
DX: E11.22 Type 2 diabetes mellitus with diabetic chronic kidney disease (principal); N18.4 Chronic kidney disease, stage 4 (severe); D63.1 Anemia in chronic kidney disease; R94.4 Abnormal results of kidney function studies; D50.8 Other iron deficiency anemias; E55.9 Vitamin D deficiency, unspecified; R80.9 Proteinuria, unspecified; R82.79 Other abnormal findings on microbiological examination of urine; N39.0 Urinary tract infection, site not specified; E11.29 Type 2 diabetes mellitus with other diabetic kidney complication
CPT/HCPCS: 36415; 80069; 81001; 82306; 82570; 82728; 83036; 83540; 83550; 83735; 83970; 84156; 85025

== ENCOUNTER 2021-06-28 12:30 | Outpatient (CLI) | payer BC | END 2021-06-28 23:59 | disposition home or self-care (01) | LOC: LAB 12:30 | PROVIDERS: ATTEND Internal Medicine | DX: N18.9 Chronic kidney disease, unspecified (principal) | CPT/HCPCS: 36415 ==

== ENCOUNTER 2021-08-25 07:24 | Outpatient (CLI) | payer BC | END 2021-08-25 23:59 | disposition home or self-care (01) | LOC: LAB 07:24 | PROVIDERS: ATTEND Internal Medicine | DX: N18.9 Chronic kidney disease, unspecified (principal) | CPT/HCPCS: 36415 ==

== ENCOUNTER 2021-09-26 09:38 | Outpatient (CLI) | payer BC ==
[2021-09-26 10:42] LABS: ALANINE AMINOTRANSFERASE 23 U/L (12-78); ALBUMIN 3.6 G/DL (3.4-5.0); ALKALINE PHOSPHATASE 62 IU/L (46-116); ANION GAP 9 (8-16); ASPARTATE AMINO TRANSFERASE 21 U/L (10-37); BILIRUBIN,TOTAL 0.9 MG/DL (0.1-1.0); BLOOD UREA NITROGEN 40 MG/DL (7-18); BUN/CREATININE RATIO 12.8 (5.4-32.0); CHLORIDE 106 MMOL/L (99-107); CHOL/HDL RATIO 2.7 (0.00-4.99); CHOLESTEROL 173 MG/DL (0-200); CREATININE 3.13 MG/DL (0.60-1.10); GLUCOSE 91 MG/DL (70-104); HDL CHOLESTEROL 63 MG/DL (35-60); LDL CHOLESTEROL 93 MG/DL (50-100); POTASSIUM 4.8 MMOL/L (3.5-5.1); SODIUM 139 MMOL/L (135-145); TOTAL CARBON DIOXIDE 23.7 MMOL/L (24-32); TOTAL PROTEIN 7.1 G/DL (6.4-8.2); TRIGLYCERIDES 82 MG/DL (20-135); eGFR 21 ML/MIN
[2021-09-27 12:30] LABS: PSA, ULTRASENSITIVE W/O SERIAL 3.08 ng/mL (0.000-4.000)
== END 2021-09-26 23:59 | disposition home or self-care (01) ==
LOC: LAB 09:38
PROVIDERS: ATTEND Internal Medicine
DX: T78.40XS Allergy, unspecified, sequela (principal); N18.4 Chronic kidney disease, stage 4 (severe); E78.00 Pure hypercholesterolemia, unspecified; J30.89 Other allergic rhinitis; L30.9 Dermatitis, unspecified; I15.0 Renovascular hypertension; R53.82 Chronic fatigue, unspecified; E66.09 Other obesity due to excess calories; G47.33 Obstructive sleep apnea (adult) (pediatric); M15.9 Polyosteoarthritis, unspecified; R35.0 Frequency of micturition; X58.XXXS Exposure to other specified factors, sequela; Z68.34 Body mass index [BMI] 34.0-34.9, adult; Z87.448 Personal history of other diseases of urinary system
CPT/HCPCS: 36415; 80053; 80061; 82607; 82746; 84153; 84439; 84443; 85651

== ENCOUNTER 2021-11-02 07:39 | Emergency (ER) | payer BC ==
[~2021-11-02] VITALS: Ht 180.3 cm; Wt 92.7 kg
[2021-11-02 07:43] VITALS: BP 167/93
[2021-11-02] MEDS ORDERED: OXYC-134 PO (08:25)
== END 2021-11-02 09:32 | disposition home or self-care (01) ==
LOC: EEVIPCON 07:39 → ER 07:39
DX: R07.89 Other chest pain (principal); R07.81 Pleurodynia; Z91.018 Allergy to other foods; Z91.011 Allergy to milk products; Z88.5 Allergy status to narcotic agent; Z79.899 Other long term (current) drug therapy
CPT/HCPCS: 71045; 99283

== ENCOUNTER 2021-11-22 10:20 | Outpatient (CLI) | payer BC ==
[~2021-11-22 10:20] MED LIST changes: +OXYC-134 PO
== END 2021-11-22 23:59 | disposition home or self-care (01) ==
LOC: LAB 10:20
PROVIDERS: ATTEND Internal Medicine
DX: N18.9 Chronic kidney disease, unspecified (principal)
CPT/HCPCS: 36415

== ENCOUNTER 2022-02-07 07:33 | Outpatient (CLI) | payer BC | END 2022-02-07 23:59 | disposition home or self-care (01) | LOC: LAB 07:33 | PROVIDERS: ATTEND Internal Medicine | DX: N18.9 Chronic kidney disease, unspecified (principal) | CPT/HCPCS: 36415 ==

== ENCOUNTER 2022-03-08 09:04 | Outpatient (CLI) | payer BC ==
[2022-03-08 10:03] LABS: BASOPHILS % (AUTO) 0.5 % (0-1); EOSINOPHILS # (AUTO) 0.1 X10'3 (0-0.9); EOSINOPHILS % (AUTO) 1.1 % (0-6); HEMATOCRIT 41.2 % (42.0-52.0); HEMOGLOBIN 14.4 g/dl (14.0-17.9); LYMPHOCYTES # (AUTO) 1.5 X10'3 (1.1-4.8); LYMPHOCYTES % (AUTO) 29.1 % (21-51); MEAN CORPUSCULAR HEMOGLOBIN 29.8 PG (27.0-31.0); MEAN CORPUSCULAR HGB CONC 34.9 g/dL (33.0-36.5); MEAN CORPUSCULAR VOLUME 85.4 FL (78-98); MEAN PLATELET VOLUME 7.6 FL (7.4-10.4); MONOCYTES # (AUTO) 0.3 X10'3 (0-0.9); MONOCYTES % (AUTO) 6.2 % (2-12); NEUTROPHILS # (AUTO) 3.2 X10'3 (1.8-7.7); NEUTROPHILS % (AUTO) 63.1 % (42-75); PLATELET COUNT 146 X10'3 (140-440); RED BLOOD COUNT 4.83 X10'6 (4.70-6.10); RED CELL DISTRIBUTION WIDTH 14.1 % (11.5-14.5); WHITE BLOOD COUNT 5.1 X10'3 (4.5-11.0)
[2022-03-08 10:08] LABS: CLARITY,URINE CLEAR (Clear); COLOR,URINE YELLOW (Yellow); GLUCOSE, URINE NEGATIVE (Neg); KETONES,URINE NEGATIVE (Neg); LEUKOCYTE ESTERASE ,URINE NEGATIVE (Neg); NITRITES, URINE NEGATIVE (Neg); OCCULT BLOOD,URINE TRACE-INTACT (Neg); PH,URINE 5.5 (4.8-8.0); PROTEIN,URINE 100 mg/dl (Neg); UROBILINOGEN,URINE 0.2 E.U/dL (0.2-1.0)
[2022-03-08 10:16] LABS: UA COLLECTION TYPE CLN CATCH MIDSTREAM
[2022-03-08 10:17] LABS: WBC,URINE 0-4 /HPF (0-4)
[2022-03-08 10:18] LABS: BACTERIA,URINE FEW /HPF (Neg); MUCUS STRANDS NONE SEEN /LPF (Neg); RBC,URINE 0-2 /HPF (0-2); RENAL CELLS, URINE FEW /HPF; SQUAMOUS EPITHELIAL CELL,UR FEW /LPF (FEW); TRANSITIONAL EPI CELLS,URINE FEW /HPF
[2022-03-08 10:24] LABS: ALBUMIN 3.7 G/DL (3.4-5.0); ANION GAP 8 (8-16); BLOOD UREA NITROGEN 58 MG/DL (7-18); BUN/CREATININE RATIO 16.1 (5.4-32.0); CALCIUM 9.1 MG/DL (8.5-10.1); CHLORIDE 103 MMOL/L (99-107); CHOL/HDL RATIO 2.9 (0.00-4.99); CHOLESTEROL 152 MG/DL (0-200); FERRITIN 159 NG/ML (26-388); GLUCOSE 104 MG/DL (70-104); HDL CHOLESTEROL 52 MG/DL (35-60); LDL CHOLESTEROL 83 MG/DL (50-100); POTASSIUM 4.4 MMOL/L (3.5-5.1); SODIUM 135 MMOL/L (135-145); TOTAL CARBON DIOXIDE 23.9 MMOL/L (24-32); TRIGLYCERIDES 85 MG/DL (20-135); eGFR 17 ML/MIN
[2022-03-08 10:57] LABS: % IRON SATURATION 38 % (11-46); IRON 100 UG/DL (53-167); TOTAL IRON BINDING CAPACITY 265 UG/DL (259-388)
[2022-03-08 11:26] LABS: TOTAL PROTEIN,URINE RANDOM 172.6 MG/DL; UA PROTEIN/CREATININE RATIO 2.69 mg/mg Cr (0-0.16)
== END 2022-03-08 23:59 | disposition home or self-care (01) ==
LOC: LAB 09:04
PROVIDERS: ATTEND Internal Medicine Critical Care Medicine
DX: N18.30 Chronic kidney disease, stage 3 unspecified (principal); R94.4 Abnormal results of kidney function studies; D63.1 Anemia in chronic kidney disease; R80.9 Proteinuria, unspecified; E55.9 Vitamin D deficiency, unspecified; E78.5 Hyperlipidemia, unspecified
CPT/HCPCS: 36415; 80061; 80069; 81001; 82306; 82570; 82728; 83540; 83550; 83735; 83970; 84156; 85025

== ENCOUNTER 2022-03-20 11:06 | Outpatient (CLI) | payer BC | END 2022-03-20 23:59 | disposition home or self-care (01) | LOC: LAB 11:06 | PROVIDERS: ATTEND Physician Assistant | DX: R53.83 Other fatigue (principal) | CPT/HCPCS: 36415; 84402; 84403; 84443 ==

== ENCOUNTER 2022-04-26 09:11 | Day surgery (SDC) | payer BC ==
[~2022-04-26] VITALS: Ht 180.3 cm; Wt 88.6 kg
[2022-04-26 09:20] VITALS: BP 143/87
[2022-04-26] MEDS ORDERED: SIMV-42 PO (09:30)
[2022-04-26] MEDS ORDERED: fentaNYL/PF 50MCG/1 ML 2ML syringe ONE (09:52)
[2022-04-26] MEDS ORDERED: MIDAZolam 1 MG/ML 5ML VIAL ONE (09:52)
[2022-04-26] MEDS ORDERED: LIDOcaine Viscous 15ml cup ONE (09:52)
[2022-04-26 10:17] VITALS: BP 128/79
[2022-04-26 10:27] VITALS: BP 117/79
[2022-04-26 10:37] VITALS: BP 123/78
[2022-04-26 10:47] VITALS: BP 123/60
== END 2022-04-26 11:08 | disposition home or self-care (01) ==
LOC: GI LAB 09:11
PROVIDERS: ATTEND Internal Medicine Gastroenterology
DX: K29.70 Gastritis, unspecified, without bleeding (principal); K44.9 Diaphragmatic hernia without obstruction or gangrene; K31.89 Other diseases of stomach and duodenum; K21.9 Gastro-esophageal reflux disease without esophagitis; N18.4 Chronic kidney disease, stage 4 (severe)
CPT/HCPCS: 43239; J2250; J3010; J7030; Z7512; 99152; A4620

== ENCOUNTER 2022-06-06 08:47 | Outpatient (CLI) | payer BC ==
[~2022-06-06 08:47] MED LIST changes: -OXYC-134 PO
[2022-06-06 09:28] LABS: EOSINOPHILS % (AUTO) 0.3 % (0-6); HEMOGLOBIN 12.4 g/dl (14.0-17.9); LYMPHOCYTES # (AUTO) 1.2 X10'3 (1.1-4.8); LYMPHOCYTES % (AUTO) 46.3 % (21-51); MEAN CORPUSCULAR HEMOGLOBIN 30.9 PG (27.0-31.0); MEAN CORPUSCULAR HGB CONC 35.3 g/dL (33.0-36.5); MEAN CORPUSCULAR VOLUME 87.6 FL (78-98); MEAN PLATELET VOLUME 7.4 FL (7.4-10.4); MONOCYTES # (AUTO) 0.1 X10'3 (0-0.9); MONOCYTES % (AUTO) 2.7 % (2-12); NEUTROPHILS # (AUTO) 1.2 X10'3 (1.8-7.7); NEUTROPHILS % (AUTO) 49.7 % (42-75); PLATELET COUNT 91 X10'3 (140-440); RED CELL DISTRIBUTION WIDTH 14.3 % (11.5-14.5); WHITE BLOOD COUNT 2.5 X10'3 (4.5-11.0)
[2022-06-06 10:20] LABS: PLATELET ESTIMATE DECREASED; TOTAL CELLS COUNTED 100
[2022-06-06 10:27] LABS: ELLIPTOCYTES FEW; SCHISTOCYTES FEW
[2022-06-06 11:07] LABS: ALBUMIN 3.5 G/DL (3.4-5.0); ANION GAP 12 (8-16); BLOOD UREA NITROGEN 49 MG/DL (7-18); BUN/CREATININE RATIO 13.3 (5.4-32.0); CHLORIDE 104 MMOL/L (99-107); CREATININE 3.68 MG/DL (0.60-1.10); GLUCOSE 95 MG/DL (70-104); PHOSPHORUS 4.7 MG/DL (2.3-4.5); POTASSIUM 4.9 MMOL/L (3.5-5.1); SODIUM 139 MMOL/L (135-145); TOTAL CARBON DIOXIDE 23.3 MMOL/L (24-32); eGFR 17 ML/MIN
== END 2022-06-06 23:59 | disposition home or self-care (01) ==
LOC: LAB 08:47
PROVIDERS: ATTEND Internal Medicine Critical Care Medicine
DX: N18.4 Chronic kidney disease, stage 4 (severe) (principal); R94.4 Abnormal results of kidney function studies; D63.1 Anemia in chronic kidney disease
CPT/HCPCS: 36415; 80069; 85007; 85025

== ENCOUNTER 2022-07-12 09:49 | Outpatient (CLI) | payer BC | END 2022-07-12 23:59 | disposition home or self-care (01) | LOC: LAB 09:49 | PROVIDERS: ATTEND Family Medicine | DX: M10.9 Gout, unspecified (principal) | CPT/HCPCS: 36415; 84550 ==

== ENCOUNTER 2022-08-02 09:35 | Outpatient (CLI) | payer BC ==
[2022-08-02 10:05] LABS: BASOPHILS % (AUTO) 0.6 % (0-1); EOSINOPHILS % (AUTO) 0.6 % (0-6); HEMATOCRIT 31.4 % (42.0-52.0); HEMOGLOBIN 10.8 g/dl (14.0-17.9); LYMPHOCYTES # (AUTO) 1.1 X10'3 (1.1-4.8); MEAN CORPUSCULAR HEMOGLOBIN 31.8 PG (27.0-31.0); MEAN CORPUSCULAR HGB CONC 34.3 g/dL (33.0-36.5); MEAN CORPUSCULAR VOLUME 92.6 FL (78-98); MEAN PLATELET VOLUME 7.9 FL (7.4-10.4); MONOCYTES % (AUTO) 2.1 % (2-12); NEUTROPHILS # (AUTO) 0.4 X10'3 (1.8-7.7); NEUTROPHILS % (AUTO) 25.7 % (42-75); RED BLOOD COUNT 3.39 X10'6 (4.70-6.10); WHITE BLOOD COUNT 1.6 X10'3 (4.5-11.0)
[2022-08-02 10:15] LABS: ALBUMIN 3.6 G/DL (3.4-5.0); BLOOD UREA NITROGEN 81 MG/DL (7-18); BUN/CREATININE RATIO 19.9 (5.4-32.0); CALCIUM 8.4 MG/DL (8.5-10.1); CREATININE 4.08 MG/DL (0.60-1.10); GLUCOSE 112 MG/DL (70-104); PHOSPHORUS 4.4 MG/DL (2.3-4.5); TOTAL CARBON DIOXIDE 16.6 MMOL/L (24-32); eGFR 15 ML/MIN
[2022-08-02 10:30] LABS: ANION GAP 13 (8-16); CHLORIDE 108 MMOL/L (99-107); POTASSIUM 4.3 MMOL/L (3.5-5.1); SODIUM 138 MMOL/L (135-145)
[2022-08-02 10:40] LABS: PLATELET COUNT 40 X10'3 (140-440)
[2022-08-02 10:45] LABS: TOTAL CELLS COUNTED 100
[2022-08-02 10:47] LABS: PLATELET ESTIMATE DECREASED; TEAR DROP CELLS FEW
[2022-08-02 10:48] LABS: ELLIPTOCYTES FEW
== END 2022-08-02 23:59 | disposition home or self-care (01) ==
LOC: LAB 09:35
PROVIDERS: ATTEND Internal Medicine Critical Care Medicine
DX: N18.4 Chronic kidney disease, stage 4 (severe) (principal); R94.4 Abnormal results of kidney function studies; D63.1 Anemia in chronic kidney disease
CPT/HCPCS: 36415; 80069; 85007; 85025

== ENCOUNTER 2022-08-04 08:03 | Outpatient (CLI) | payer BC ==
[2022-08-04 08:29] LABS: EOSINOPHILS % (AUTO) 0.4 % (0-6); NEUTROPHILS # (AUTO) 0.4 X10'3 (1.8-7.7)
[2022-08-04 08:31] LABS: BASOPHILS % (AUTO) 1.3 % (0-1); HEMATOCRIT 35.6 % (42.0-52.0); HEMOGLOBIN 12.4 g/dl (14.0-17.9); LYMPHOCYTES % (AUTO) 68.2 % (21-51); MEAN CORPUSCULAR HEMOGLOBIN 32.2 PG (27.0-31.0); MEAN CORPUSCULAR HGB CONC 34.9 g/dL (33.0-36.5); MEAN CORPUSCULAR VOLUME 92.3 FL (78-98); MEAN PLATELET VOLUME 7.1 FL (7.4-10.4); MONOCYTES % (AUTO) 2.8 % (2-12); NEUTROPHILS % (AUTO) 27.3 % (42-75); RED BLOOD COUNT 3.85 X10'6 (4.70-6.10); WHITE BLOOD COUNT 1.5 X10'3 (4.5-11.0)
[2022-08-04 09:20] LABS: PLATELET COUNT 45 X10'3 (140-440)
[2022-08-04 09:25] LABS: ALANINE AMINOTRANSFERASE 17 U/L (12-78); ALBUMIN 3.9 G/DL (3.4-5.0); ALBUMIN/GLOBULIN RATIO 1.3 (1.1-1.5); ALKALINE PHOSPHATASE 54 IU/L (46-116); ANION GAP 12 (8-16); ASPARTATE AMINO TRANSFERASE 10 U/L (10-37); BILIRUBIN,TOTAL 1.4 MG/DL (0.1-1.0); BLOOD UREA NITROGEN 68 MG/DL (7-18); BUN/CREATININE RATIO 16.9 (5.4-32.0); CALCIUM 9.2 MG/DL (8.5-10.1); CHLORIDE 106 MMOL/L (99-107); CREATINE KINASE 114 U/L (39-308); CREATININE 4.03 MG/DL (0.60-1.10); GLUCOSE 97 MG/DL (70-104); POTASSIUM 4.5 MMOL/L (3.5-5.1); SODIUM 140 MMOL/L (135-145); TOTAL CARBON DIOXIDE 22.5 MMOL/L (24-32); TOTAL PROTEIN 6.9 G/DL (6.4-8.2); eGFR 15 ML/MIN
[2022-08-04 09:38] LABS: ANISOCYTOSIS 1+; PLATELET ESTIMATE DECREASED; TOTAL CELLS COUNTED 100
[2022-08-04 09:40] LABS: BURR CELLS FEW; ELLIPTOCYTES FEW; TEAR DROP CELLS FEW
== END 2022-08-04 23:59 | disposition home or self-care (01) ==
LOC: LAB 08:03
PROVIDERS: ATTEND Internal Medicine Critical Care Medicine
DX: N18.4 Chronic kidney disease, stage 4 (severe) (principal); D63.1 Anemia in chronic kidney disease; R97.0 Elevated carcinoembryonic antigen [CEA]
CPT/HCPCS: 36415; 80053; 82550; 85007; 85025

== ENCOUNTER 2022-08-14 07:56 | Outpatient (CLI) | payer BC ==
[2022-08-14 08:39] LABS: HEMOGLOBIN 10.4 g/dl (14.0-17.9); MEAN PLATELET VOLUME 7.2 FL (7.4-10.4); MONOCYTES % (AUTO) 2.2 % (2-12); NEUTROPHILS # (AUTO) 0.3 X10'3 (1.8-7.7); RED BLOOD COUNT 3.15 X10'6 (4.70-6.10); WHITE BLOOD COUNT 1.1 X10'3 (4.5-11.0)
[2022-08-14 08:41] LABS: BASOPHILS % (AUTO) 3.5 % (0-1); EOSINOPHILS % (AUTO) 0.1 % (0-6); HEMATOCRIT 28.9 % (42.0-52.0); LYMPHOCYTES # (AUTO) 0.7 X10'3 (1.1-4.8); LYMPHOCYTES % (AUTO) 66.8 % (21-51); MEAN CORPUSCULAR HGB CONC 35.9 g/dL (33.0-36.5); MEAN CORPUSCULAR VOLUME 91.8 FL (78-98); NEUTROPHILS % (AUTO) 27.4 % (42-75); RED CELL DISTRIBUTION WIDTH 16.1 % (11.5-14.5)
[2022-08-14 09:47] LABS: PLATELET COUNT 30 X10'3 (140-440)
[2022-08-14 10:26] LABS: ANISOCYTOSIS 1+; PLATELET ESTIMATE DECREASED; TOTAL CELLS COUNTED 50
== END 2022-08-14 23:59 | disposition home or self-care (01) ==
LOC: LAB 07:56
PROVIDERS: ATTEND Internal Medicine Critical Care Medicine
DX: N18.4 Chronic kidney disease, stage 4 (severe) (principal); D63.1 Anemia in chronic kidney disease
CPT/HCPCS: 85007; 85025

== ENCOUNTER 2022-08-17 08:44 | Outpatient (CLI) | payer BC | END 2022-08-17 23:59 | disposition home or self-care (01) | LOC: RAD 08:44 | PROVIDERS: ATTEND Internal Medicine Hematology & Oncology | DX: K80.20 Calculus of gallbladder without cholecystitis without obstruction (principal); N28.1 Cyst of kidney, acquired; R10.9 Unspecified abdominal pain | CPT/HCPCS: 76700 ==

== ENCOUNTER 2022-09-12 13:34 | Outpatient (CLI) | payer BC ==
[2022-09-12 14:22] LABS: HEMOGLOBIN 7.5 g/dl (14.0-17.9); LYMPHOCYTES # (AUTO) 0.6 X10'3 (1.1-4.8); MEAN CORPUSCULAR HGB CONC 34.6 g/dL (33.0-36.5); MONOCYTES # (AUTO) 0.1 X10'3 (0-0.9); RED BLOOD COUNT 2.28 X10'6 (4.70-6.10)
[2022-09-12 14:24] LABS: BASOPHILS % (AUTO) 1.6 % (0-1); EOSINOPHILS % (AUTO) 0.1 % (0-6); MEAN CORPUSCULAR HEMOGLOBIN 32.9 PG (27.0-31.0); MEAN PLATELET VOLUME 7.5 FL (7.4-10.4); MONOCYTES % (AUTO) 8.5 % (2-12); NEUTROPHILS # (AUTO) 0.1 X10'3 (1.8-7.7); NEUTROPHILS % (AUTO) 16.8 % (42-75); RED CELL DISTRIBUTION WIDTH 17.5 % (11.5-14.5)
[2022-09-12 14:31] LABS: HEMATOCRIT 21.6 % (42.0-52.0); PLATELET COUNT 16 X10'3 (140-440); WHITE BLOOD COUNT 0.9 X10'3 (4.5-11.0)
[2022-09-12 15:03] LABS: NUCLEATED RED BLOOD CELLS 44 /100WBC (0-0); TOTAL CELLS COUNTED 100
[2022-09-12 15:04] LABS: LYMPHOCYTES % (MANUAL) 64 % (21-51); PLATELET ESTIMATE DECREASED
[2022-09-12 15:05] LABS: ANISOCYTOSIS 1+; POLYCHROMASIA FEW
== END 2022-09-12 23:59 | disposition home or self-care (01) ==
LOC: LAB 13:34
PROVIDERS: ATTEND Internal Medicine Critical Care Medicine
DX: N18.4 Chronic kidney disease, stage 4 (severe) (principal); D63.1 Anemia in chronic kidney disease
CPT/HCPCS: 85007; 85025

== ENCOUNTER 2022-09-14 10:51 | Emergency (ER) | payer BC ==
[~2022-09-14] VITALS: Ht 180.3 cm; Wt 86.4 kg
[2022-09-14 11:40] LABS: HEMOGLOBIN 7.4 g/dl (14.0-17.9); NEUTROPHILS # (AUTO) 0.1 X10'3 (1.8-7.7)
[2022-09-14 11:47] LABS: BASOPHILS % (AUTO) 1.5 % (0-1); EOSINOPHILS % (AUTO) 0.1 % (0-6); LYMPHOCYTES # (AUTO) 0.6 X10'3 (1.1-4.8); LYMPHOCYTES % (AUTO) 77.5 % (21-51); MEAN CORPUSCULAR HEMOGLOBIN 33.1 PG (27.0-31.0); MEAN CORPUSCULAR HGB CONC 34.6 g/dL (33.0-36.5); MEAN CORPUSCULAR VOLUME 95.8 FL (78-98); MEAN PLATELET VOLUME 7.4 FL (7.4-10.4); NEUTROPHILS % (AUTO) 14.9 % (42-75); RED BLOOD COUNT 2.25 X10'6 (4.70-6.10); RED CELL DISTRIBUTION WIDTH 17.4 % (11.5-14.5)
[2022-09-14 11:56] LABS: APTT 30 SECONDS (22-32)
[2022-09-14 11:58] LABS: ALANINE AMINOTRANSFERASE 16 U/L (12-78); ALBUMIN 3.6 G/DL (3.4-5.0); ALBUMIN/GLOBULIN RATIO 1.2 (1.1-1.5); ALKALINE PHOSPHATASE 61 IU/L (46-116); ANION GAP 11 (8-16); ASPARTATE AMINO TRANSFERASE 16 U/L (10-37); BILIRUBIN,TOTAL 0.8 MG/DL (0.1-1.0); BLOOD UREA NITROGEN 61 MG/DL (7-18); BUN/CREATININE RATIO 13.7 (10.0-20.0); CALCIUM 8.6 MG/DL (8.5-10.1); CHLORIDE 109 MMOL/L (99-107); CREATININE 4.44 MG/DL (0.60-1.10); GLUCOSE 93 MG/DL (70-104); POTASSIUM 4.7 MMOL/L (3.5-5.1); SODIUM 140 MMOL/L (135-145); TOTAL CARBON DIOXIDE 20.1 MMOL/L (24-32); TOTAL PROTEIN 6.7 G/DL (6.4-8.2); eGFR 14 ML/MIN
[2022-09-14 12:08] LABS: HEMATOCRIT 21.5 % (42.0-52.0); PLATELET COUNT 14 X10'3 (140-440); WHITE BLOOD COUNT 0.8 X10'3 (4.5-11.0)
[2022-09-14 13:38] VITALS: BP 125/69
[2022-09-14 13:56] VITALS: BP 131/77
[2022-09-14 15:16] VITALS: BP 139/94
[2022-09-18 15:55] LABS: OCCULT BLOOD STOOL NEGATIVE (Neg)
== END 2022-09-14 15:27 | disposition home or self-care (01) ==
LOC: ER 10:52
DX: D64.9 Anemia, unspecified (principal); D61.818 Other pancytopenia; N18.9 Chronic kidney disease, unspecified; I10 Essential (primary) hypertension; Z91.011 Allergy to milk products; Z91.018 Allergy to other foods; Z88.5 Allergy status to narcotic agent; Z79.899 Other long term (current) drug therapy; Z88.8 Allergy status to other drugs, medicaments and biological substances; Z79.1 Long term (current) use of non-steroidal anti-inflammatories (NSAID); Z79.2 Long term (current) use of antibiotics
CPT/HCPCS: 36415; 36430; 71045; 80053; 82272; 85025; 85610; 85730; 86644; 86885; 86900; 86901; 86920; 86945; 93005; 99285; J7030; P9016